=== PATIENT | male | born 1960 | race Caucasian/White ===

== ENCOUNTER 2018-07-23 22:44 | Inpatient (IN) ==
[2018-07-23] MEDS ORDERED: SOLU-MEDROL IV ONE (23:03)
[2018-07-23] MEDS ORDERED: DUONEB (A & A) INH ONE (23:04)
[2018-07-23 23:29] LABS: BASO# 0.04 X1000 (0.0-0.2); BASO% 0.5 % (0.0-0.8); EOS# 0.04 X1000 (0.0-0.7); EOS% 0.5 % (0.0-10.0); HEMATOCRIT 50.6 % (42.0-52.0); HEMOGLOBIN 17.2 g/dL (14.0-18.0); IMM GRAN# 0.03 X1000 (0.0-0.04); IMM GRAN% 0.4 % (0.0-0.5); LYMPH# 2.61 X1000 (1.2-3.4); LYMPH% 30.9 % (20.5-51.1); MCH 32.1 PG (27-31); MCV 94.4 FL (81-99); MONO# 0.71 X1000 (0.11-0.59); MONO% 8.4 % (1.7-9.3); MPV 8.5 FL (7.4-10.4); NEUT# 5.03 X1000 (1.4-6.5); NEUT% 59.3 % (42.2-75.2); PLT 295 X1000 (130-400); RBC 5.36 XMIL (4.7-6.1); RDW 14.4 % (11.5-14.5); WBC 8.46 X1000 (4.8-10.8)
[2018-07-23 23:41] LABS: AGAP 14; ALBUMIN 4.2 g/dL (3.5-5.0); ALKALINE PHOSPHATASE 83 U/L (32-122); BUN 12 mg/dL (8-22); CALCIUM 8.3 mg/dL (8.8-10.2); CHLORIDE 102 mmol/L (98-107); COSMO 288; CREATININE 0.9 mg/dL (0.7-1.2); ESTIMATED GFR > 60; GLUCOSE 116 mg/dL (70-104); GOT 15 U/L (10-34); GPT < 5 U/L (10-44); POTASSIUM 4.3 mmol/L (3.5-5.1); SODIUM 144 mmol/L (136-145); TCO2 28 mmol/L (25-35); TOTAL PROTEIN 7.1 g/dL (6.3-8.3)
[2018-07-24 00:01] LABS: INFLUENZA A NEGATIVE (NEGATIVE); INFLUENZA B NEGATIVE (NEGATIVE)
[2018-07-24] MEDS ORDERED: LEVAQUIN 750 MG/D5W 750 MG/150 ML IVPB IV ONE (01:10)
--- NOTE | 2018-07-24 01:10 | PROVIDER DOCUMENTATION ---
This chart was entered by Sayda Chaidez Scribe, acting as scribe for Boby Benítez MD. HPI-Respiratory General - General Chief Complaint: Shortness of Breath Stated Complaint: sob Time Seen by Provider: 07/23/18 23:02 Source: patient Allergies/Adverse Reactions: Patient Allergies Allergy/AdvReac Type Severity Reaction Status Date / Time No Known Allergies Allergy Verified 01/16/18 15:34 Home Medications: Home Medication List Medication Instructions Recorded Confirmed Last Taken Type Albuterol 2.5MG/Ipratrop 0.5MG 3 ml INH Q4-6H PRN PRN #120 neb 12/23/17 01/08/18 Unknown Rx [Duoneb (A & A)] Albuterol Sulfate Inhaler 2 puff INH Q6H PRN PRN #1 inhaler 12/23/17 01/08/18 Unknown Rx [Ventolin Hfa] Alprazolam [Xanax] 0.25 mg PO QHS #20 tab 12/23/17 01/08/18 Unknown Rx Fluticasone/Salmet 250/50 INH 1 puff INH RTBID #1 inhaler 12/23/17 01/08/18 Unknown Rx [Advair 250/50 Diskus] Gabapentin [Neurontin] 100 mg PO BID #60 cap 12/23/17 01/08/18 Unknown Rx Baclofen [Lioresal] 10 mg PO TID@0900,1500,2100 01/08/18 01/08/18 Unknown History Chlordiazepoxide [Librium] 25 mg PO TID PRN #10 cap 01/11/18 Unknown Rx - History of Present Illness-Resp Nature of Presenting Problem: Pt presents to ED via EMS and has hx of COPD and is a current everyday smoker. Sts that he has had worsened SOB for the last 2 days, does not use O2 at home. in ED was on 2 liters and stating only 88%, turned up and now is improving. Quality of Pain: reports: none, other (SOB) Severity in ED: reports: moderate Onset/Duration: reports: 2 days ago Timing: reports: still present Cough Quality/Degree: reports: no cough Episode Frequency: chronic episodes Current Respiratory Medication Therapy: Initiated albuterol/atrovent inhale (albuterol treatment en route to ED) Associated Symptoms: reports: denies symptoms, short of breath. denies: cough Similar Symptoms Previously?: Yes Recently seen or treated by another doctor?: No Review of Systems - Adult - REVIEW OF SYSTEMS - ADULT Constitutional: reports: no symptoms reported. denies: chills, fever Eyes: reports: no symptoms reported Ears, Nose, Mouth & Throat: reports: no symptoms reported Cardiovascular: denies: chest pain Respiratory: reports: shortness of breath Gastrointestinal: reports: no symptoms reported. denies: abdominal pain, diarrhea, nausea, vomiting Genitourinary: reports: no symptoms reported Musculoskeletal: reports: no symptoms reported Integumentary: reports: no symptoms reported Neurological: denies: dizziness/vertigo, headache/migraines Psychiatric: reports: no symptoms reported Endocrine: reports: no symptoms reported Hematologic/Lymphatic: reports: no symptoms reported Allergic/Immunologic: reports: no symptoms reported Past History - Adult - PAST MEDICAL HISTORY-ADULT Review of Records: reports: Old Records Reviewed, Nursing Assessment Review, Medications Reviewed, Social history reviewed & non-contributory. Major Childhood Illnesses: reports: denies history Cardiovascular: reports: denies history Respiratory: reports: asthma, COPD Gastrointestinal: reports: hepatitis (C) Obstetrical/Gynecological: reports: denies history Genitourinary: reports: denies history Musculoskeletal: reports: chronic pain Neurological: reports: denies history Psychiatric: reports: anxiety, depression, other (alcoholic) Endocrine/Immune: reports: denies history Other Conditions: reports: denies history - PRIOR SURGERIES/PROCEDURES Surgical/Procedure History: reports: orthopedic (extremity) - IMMUNIZATION STATUS Childhood Immunizations: See Nurse Assessment Flu Vaccine: See Nurse Assessment - FAMILY HISTORY Family History: reviewed, not pertinent - SOCIAL HISTORY Smoking: greater than 1 pack/day Provider spent 3-5 mins advising pt. on dangers of tobacco.: Discussed manners to quit use, and f/u contacts for add'l counseling. Substance Use: none/never Alcohol Use Frequency: occasionally Physical Exam-General - PHYSICAL EXAM-ADULT Initial Vital Signs Reviewed: Yes - CONSTITUTIONAL General Appearance: appears well, alert, no apparent distress - EYES Eyes: PERRL/EOMI, pink conjunctivae - HEAD, EARS, NOSE, MOUTH & THROAT HENMT: normocephalic/atraumatic, moist mucous membranes, normal ENT inspection, TMs normal, pharynx normal - NECK Neck: non-tender, full range of motion, supple, normal inspection - RESPIRATORY Respiratory: chest non-tender, other (Course breath sounds) - CARDIOVASCULAR Cardiovascular: normal peripheral pulses, no edema, tachycardia (107) - GASTROINTESTINAL (ABDOMEN) Abdominal Exam: normal bowel sounds, non tender, soft - LYMPHATIC Lymphatic: no adenopathy - MUSCULOSKELETAL Back Exam: normal inspection, no CVA tenderness, no vertebral tenderness Extremity: normal range of motion, non-tender, normal gait, normal inspection - SKIN Integumentary: normal color, warm/dry - NEUROLOGIC Neurologic: grossly normal - PSYCHIATRIC Psych/Mental Status: normal mood/affect, normal thought content, normal thought process, oriented x 3 Progress - PLAN OF CARE/RESULTS Progress/Plan/Lab Results: Vital Signs - 8 hr 07/23/18 22:44 07/23/18 23:40 07/24/18 00:09 Temperature 99.0 F 98.9 F Pulse Rate 107 H 98 H 96 H Respiratory Rate 16 26 H 26 H Blood Pressure 134/92 139/89 O2 Sat by Pulse Oximetry 94 L 98 93 L Laboratory Results - last 24 hr 07/23/18 07/23/18 07/23/18 22:45 22:45 22:45 WBC 8.46 RBC 5.36 Hgb 17.2 Hct 50.6 MCV 94.4 MCH 32.1 H MCHC 34.0 RDW Std Deviation 14.4 Plt Count 295 MPV 8.5 Immature Gran % (Auto) 0.4 Neut % (Auto) 59.3 Lymph % (Auto) 30.9 Rooks % (Auto) 8.4 Eos % (Auto) 0.5 Baso % (Auto) 0.5 Immature Gran # (Auto) 0.03 Neut # (Auto) 5.03 Lymph # (Auto) 2.61 Rooks # (Auto) 0.71 H Eos # (Auto) 0.04 Baso # (Auto) 0.04 Sodium 144 Potassium 4.3 Chloride 102 Carbon Dioxide 28 Anion Gap 14 BUN 12 Creatinine 0.9 Estimated GFR/1.73 m2 > 60 BUN/Creatinine Ratio 13 Glucose 116 H Calculated Osmolality 288 Calcium 8.3 L Total Bilirubin 0.20 AST 15 ALT < 5 L Alkaline Phosphatase 83 Troponin T < 0.010 Wbl-X-Ovdiuarrcva Pept Total Protein 7.1 Albumin 4.2 Globulin 3.0 Albumin/Globulin Ratio 1.0 Influenza A (Rapid) Influenza B (Rapid) 07/23/18 07/23/18 22:45 23:30 WBC RBC Hgb Hct MCV MCH MCHC RDW Std Deviation Plt Count MPV Immature Gran % (Auto) Neut % (Auto) Lymph % (Auto) Rooks % (Auto) Eos % (Auto) Baso % (Auto) Immature Gran # (Auto) Neut # (Auto) Lymph # (Auto) Rooks # (Auto) Eos # (Auto) Baso # (Auto) Sodium Potassium Chloride Carbon Dioxide Anion Gap BUN Creatinine Estimated GFR/1.73 m2 BUN/Creatinine Ratio Glucose Calculated Osmolality Calcium Total Bilirubin AST ALT Alkaline Phosphatase Troponin T Tun-C-Wsuqcrynwlf Pept 124 Total Protein Albumin Globulin Albumin/Globulin Ratio Influenza A (Rapid) NEGATIVE Influenza B (Rapid) NEGATIVE Orders Category Date Time Status cxr [CHEST-1 VIEW] [RAD] Stat Exams 07/23/18 23:03 Taken CBC WITH ELECTRONIC DIFF [HEME] Stat Lab 07/23/18 22:45 Completed COMPREHENSIVE METABOLIC PANEL [CHEM] Stat Lab 07/23/18 22:[address] Stat Lab 07/23/18 23:30 Completed PRO B-NATRIURETIC PEPTIDE Stat Lab 07/23/18 22:45 Completed TROPONIN T Stat Lab 07/23/18 22:45 Completed Albuterol 2.5MG/Ipratrop 0.5MG [Duoneb (A & A)] Med 07/23/18 23:04 Discontinued 3 ml INH NOW ONE Methylprednisolone Sod Succ [Solu-Medrol] Med 07/23/18 23:03 Discontinued 125 mg IV NOW ONE Aerosol Treatments Routine Oth 07/23/18 23:04 Completed Aerosol Treatments Stat Oth 07/23/18 23:04 Completed Result Diagrams: 07/23/18 22:45 07/23/18 22:45 Departure - Departure Date of Disposition Decision: 07/24/18 Time of Disposition Decision: 01:10 DIAGNOSIS: COPD exacerbation Disposition: ADMITTED INPATIENT 09 Certified Medical Emergency: Emergent Condition: Fair - Critical Care Note This patient required my direct & personal management of CC.: No Attestation - Physician/ MANDA Attestation Patient care was provided by Advanced Practice Provider:: No The physician spent face to face time with patient:: Yes Advanced Practice Provider documentation review:: Supervising physician onsite and consulted in the evaluation and care of this patient. The physician did have a face to face encounter with the patient. This chart was documented by the indicated scribe, (Sayda Chaidez, Ashley) and accurately reflects the services I performed and decisions made by me, Boby Benítez MD, as attested by the provider's signature.
[2018-07-24] MEDS ORDERED: ZOFRAN IV PRN (01:12)
[2018-07-24] MEDS ORDERED: TYLENOL PO PRN (01:12)
[2018-07-24] MEDS ORDERED: FLU VACCINE IM ONE (03:01)
[2018-07-24 03:53] LABS: BE 1.1 mmoll (-3.0-3.0); BLOOD TYPE ARTERIAL; HCO3-(ACT) 25.6 mmoll (20.0-26.0); METHB 1.5 % (0.0-1.5); O2(CT) 21.3 mL/dL (15.0-23.0); O2HB 92.3 % (95.0-99.0); PO2(98.6) 86 mmHg (60-100); SAMPLE BLOOD; SAO2 97.7 % (95.0-100.0); THB 16.4 g/dL (11.5-17.4); pH(98.6) 7.34 (7.35-7.45)
[2018-07-24 03:54] LABS: PCO2(98.6) 52 mmHg (35-45)
[2018-07-24 03:55] LABS: ALLEN TEST YES; MODALITY CANNULA
[2018-07-24 07:04] LABS: BASO# 0.01 X1000 (0.0-0.2); BASO% 0.2 % (0.0-0.8); HEMATOCRIT 45.9 % (42.0-52.0); HEMOGLOBIN 15.4 g/dL (14.0-18.0); IMM GRAN# 0.02 X1000 (0.0-0.04); IMM GRAN% 0.4 % (0.0-0.5); LYMPH# 0.76 X1000 (1.2-3.4); LYMPH% 13.5 % (20.5-51.1); MCH 31.2 PG (27-31); MCHC 33.6 g/dL (33-37); MCV 93.1 FL (81-99); MONO# 0.04 X1000 (0.11-0.59); MONO% 0.7 % (1.7-9.3); MPV 8.6 FL (7.4-10.4); NEUT# 4.79 X1000 (1.4-6.5); NEUT% 85.2 % (42.2-75.2); PLT 248 X1000 (130-400); RBC 4.93 XMIL (4.7-6.1); RDW 13.9 % (11.5-14.5); WBC 5.62 X1000 (4.8-10.8)
[2018-07-24 07:25] LABS: AGAP 16; BUN 16 mg/dL (8-22); CALCIUM 8.1 mg/dL (8.8-10.2); CHLORIDE 100 mmol/L (98-107); COSMO 284; CREATININE 0.7 mg/dL (0.7-1.2); ESTIMATED GFR > 60; GLUCOSE 128 mg/dL (70-104); POTASSIUM 3.8 mmol/L (3.5-5.1); SODIUM 141 mmol/L (136-145); TCO2 26 mmol/L (25-35)
--- NOTE | 2018-07-24 07:53 | Diag Imaging Result Doc PS360 ---
EXAM: CHEST-1 VIEW - 07/23/2018 HISTORY: sob TECHNIQUE: One view chest COMPARISON: 12/20/2017 FINDINGS: Heart size is normal. There are possible COPD changes with mildly hyperexpanded lungs. The lungs appear to be clear of acute changes. There is no pleural effusion or pneumothorax identified. IMPRESSION: Possible COPD changes with mildly hyperexpanded lungs. No other evidence of acute disease. Electronically signed by Dusty Tafoya 07/24/2018 7:50 AM
[2018-07-24] MEDS: NICODERM PATCH TD SCH (08:07)
[2018-07-24] MEDS ORDERED: SOLU-MEDROL IV SCH (08:15)
[2018-07-24] MEDS: MORPHINE IV PRN ×3 (08:27→20:31)
[2018-07-24] MEDS ORDERED: NICODERM PATCH TD SCH (09:00)
[2018-07-24] MEDS: ROCEPHIN 1 GM in NS 50 ML IV SCH (10:04)
[2018-07-24] MEDS: LIBRIUM PO SCH ×3 (10:26→23:11)
[2018-07-24] MEDS: ZITHROMAX 500 MG/NS 500 MG/250 ML IVPB IV SCH (10:27)
[2018-07-24] MEDS: DUONEB (A & A) INH SCH ×4 (11:53→23:33)
--- NOTE | 2018-07-24 11:54 | HISTORY AND PHYSICAL ---
PRIMARY CARE PHYSICIAN: None. CHIEF COMPLAINT: Shortness of breath that has worsened over the past 2 days. HISTORY OF PRESENTING ILLNESS: This is a 57-year-old male who presents to [facility] ER with complaints of shortness of breath that have progressively worsened over the last 2 days. States that he had been buying Xanax from a neighbor for quite a while and the neighbor moved to another location and he was no longer able to buy the Xanax. He then relapsed from his alcoholism and over the last 3 days has been drinking approximately a pint of liquor daily in order to combat his worsening anxiety from most likely a benzodiazepine withdrawal. When he arrived to the emergency room, he had an O2 saturation of 94% on room air. His chest x-ray showed possible COPD changes with mildly hyperexpanded lungs, but no other evidence of acute disease. He was noted in the emergency room to have coarse breath sounds, this morning is a little decreased. He was tachycardic at 107 on arrival and is currently at 102, so he has been admitted for further evaluation and treatment. He also does state that he has had some increased depression since his relapse, but no suicidal ideations or any type of plan at this time. PAST MEDICAL HISTORY: COPD, hepatitis C, chronic pain, depression and anxiety. PAST SURGICAL HISTORY: A knee arthroscopy but the patient is unable to recall which knee it was. FAMILY HISTORY: Reviewed and noncontributory. SOCIAL HISTORY: Currently lives with his ex . Smokes a pack of cigarettes a day and has done so for 40 years. Over the last 3 days, he states he has been drinking a pint of alcohol daily. He had been sober for approximately a year prior to this, and uses marijuana occasionally. ALLERGIES: He has no known drug allergies. HOME MEDICATIONS: He does not take any medications prescribed to him on a routine basis, but again, he has been buying Xanax off the street. LABORATORY DATA: He had a white blood cell count of 8.46, hemoglobin 17.2, hematocrit 50.6, platelets 295,000. ABG showed a pH of 7.34, pCO2 of 52, PO2 86, bicarb 25.6. This is on 3 L via nasal cannula. Sodium was 144, potassium 4.3, chloride 102, CO2 28, BUN of 12, creatinine 0.9, glucose 116. His proBNP was 124. Influenza A and B were both negative. REVIEW OF SYSTEMS: He denied any fever, chills, blurred vision, dizziness, or chest pain. He has had shortness of breath, nonproductive cough. Denies any abdominal pain, constipation, diarrhea, burning or hurting with urination. He does report increased anxiety as well. PHYSICAL EXAMINATION: VITAL SIGNS: On arrival, he had a temperature of 99 degrees, a pulse of 107, respirations 16, blood pressure 134/92. GENERAL: This is a 57-year-old male who is sitting up in the bed and answers questions appropriately. HEENT: Normocephalic, atraumatic. Normal ENT inspection. Oropharynx and nares are clear. EYES: Pupils are equal, round, reactive to light and accommodation. Extraocular movements are intact. NECK: Normal inspection. Normal range of motion. LUNGS: With decreased breath sounds bilaterally. Equal lung expansion. Chest wall movement noted. HEART: With regular rate and rhythm. No murmurs, rubs, or gallops. ABDOMEN: Soft, nontender, nondistended. Bowel sounds are present x4 quadrants. MUSCULOSKELETAL: He has 5/5 strength x4 extremities. NEUROLOGICAL: The cranial nerves 2-12 appear grossly intact. ASSESSMENT: 1. An acute chronic obstructive pulmonary disease exacerbation. 2. Ethanol abuse. 3. Tobacco abuse. 4. Depression and anxiety without suicidal ideations. PLAN: He has been admitted to the medical unit, placed on O2 per protocol, telemetry. Healthy heart diet. DuoNeb q.4 hours, Solu-Medrol 80 mg IV q.8 and will wean as he improves, Rocephin 1 gram IV q.24, azithromycin 500 IV q.24, Librium high dose taper and Ativan 1 mg IV q.4 hours p.r.n. for alcohol withdrawal. We will recheck a CBC, BMP in the a.m. Further orders after being seen by attending. Dictated by RENÉ Pino for Dieter Osborne MD cc: RENÉ Pino MD
--- NOTE | 2018-07-24 12:36 | HISTORY AND PHYSICAL ---
ADDENDUM: Mr. Gil got admitted yesterday because of shortness of breath. Upon presentation, he was found to be remarkably hypoxemic with an O2 saturation of 94, and ABG showed a pCO2 of 52. The patient was subsequently admitted. This morning, he refers to be doing a little better. Still has some shortness of breath. O2 saturation is up to 96 on 3 L. I reviewed all his labs. Remarkably, his ABG showed pH of 7.34, pCO2 of 52. A chest x-ray which was done yesterday also showed possible COPD changes with mildly hyperexpanded lungs. ASSESSMENT: 1. Acute hypoxemic respiratory failure. 2. Acute on chronic hypercarbic respiratory failure. 3. Chronic obstructive pulmonary disease exacerbation. 4. Severe alcohol abuse. 5. Active tobacco use. 6. Chronic prescription drug abuse. PLAN: We are going to continue with the IV antibiotics, put the patient on alcohol withdrawal protocol, steroids and nebulization, and re-evaluate him in the morning. Agree with H P that has been dictated by the nurse practitioner, and the plan reflects my opinion. Discussed with her. cc: Dieter Osborne MD
[2018-07-24] MEDS: ATIVAN IV PRN ×2 (12:44→20:30)
[2018-07-24] MEDS: SOLU-MEDROL IV SCH (17:09)
[2018-07-24] MEDS ORDERED: AMBIEN PO PRN (21:13)
[2018-07-25] MEDS: DUONEB (A & A) INH SCH ×3 (03:31→11:40)
[2018-07-25] MEDS: LIBRIUM PO SCH ×2 (04:07→11:04)
[2018-07-25] MEDS: SOLU-MEDROL IV SCH ×2 (04:07→10:54)
[2018-07-25] MEDS: ATIVAN IV PRN ×2 (04:08→08:06)
[2018-07-25] MEDS: MORPHINE IV PRN ×3 (04:08→11:04)
[2018-07-25 06:05] LABS: HEMATOCRIT 43.1 % (42.0-52.0); HEMOGLOBIN 14.7 g/dL (14.0-18.0); IMM GRAN# 0.02 X1000 (0.0-0.04); IMM GRAN% 0.2 % (0.0-0.5); LYMPH# 0.68 X1000 (1.2-3.4); LYMPH% 7.8 % (20.5-51.1); MCH 31.9 PG (27-31); MCHC 34.1 g/dL (33-37); MCV 93.5 FL (81-99); MONO# 0.78 X1000 (0.11-0.59); MONO% 8.9 % (1.7-9.3); MPV 8.6 FL (7.4-10.4); NEUT# 7.25 X1000 (1.4-6.5); NEUT% 83.1 % (42.2-75.2); PLT 202 X1000 (130-400); RBC 4.61 XMIL (4.7-6.1); RDW 13.9 % (11.5-14.5); WBC 8.73 X1000 (4.8-10.8)
[2018-07-25 06:20] LABS: AGAP 8; BUN 22 mg/dL (8-22); CALCIUM 8.4 mg/dL (8.8-10.2); CHLORIDE 96 mmol/L (98-107); COSMO 276; CREATININE 0.7 mg/dL (0.7-1.2); ESTIMATED GFR > 60; GLUCOSE 143 mg/dL (70-104); POTASSIUM 4.6 mmol/L (3.5-5.1); SODIUM 135 mmol/L (136-145); TCO2 31 mmol/L (25-35)
[2018-07-25 07:34] VITALS: BP 143/80
[2018-07-25] MEDS: ROCEPHIN 1 GM in NS 50 ML IV SCH ×2 (07:49→10:54)
[2018-07-25] MEDS: NICODERM PATCH TD SCH ×2 (07:51→10:52)
[2018-07-25] MEDS: ZITHROMAX 500 MG/NS 500 MG/250 ML IVPB IV SCH ×2 (08:06→10:53)
--- NOTE | 2018-07-25 12:08 | DISCHARGE SUMMARY ---
ADMISSION DATE: 07/24/2018 DISCHARGE DATE: 07/25/2018 DISPOSITION: Home. FOLLOWUP: With patient's PCP. CONSULTATION DURING THIS ADMISSION: None. INVASIVE PROCEDURES DONE DURING THIS ADMISSION: None. IMAGING STUDIES OF SIGNIFICANCE: A chest x-ray shows COPD changes with mildly hyperexpanded lungs. ADMISSION DIAGNOSES: 1. Chronic obstructive pulmonary disease exacerbation. 2. Ethanol abuse. 3. Tobacco abuse. 4. Depression and anxiety without suicidal or homicidal thoughts. DIAGNOSES AT THE TIME OF DISCHARGE: 1. Acute hypoxemic respiratory failure, improved. 2. Acute on chronic hypercarbic respiratory failure. 3. Chronic obstructive pulmonary disease exacerbation. 4. Severe alcohol abuse. 5. Tobacco abuse. 6. Chronic prescription drug abuse. 7. Clinical volume depletion, improved. DISCHARGE MEDICATIONS: 1. Prednisone 20 mg daily. 2. Klonopin 0.5 p.o. daily. 3. Gabapentin 100 mg b.i.d. 4. Spiriva 1 puff b.i.d. 5. Azithromycin 250 p.o. daily. 6. Augmentin 875 p.o. b.i.d. 7. Ventolin inhaler 2 puffs q.6 p.r.n. for wheezing. PRESENTING COMPLAINT: Shortness of breath. HISTORY OF PRESENTING COMPLAINT: Mr. Gil is a 57-year-old, male who presented to the emergency department because of a 2-day history of shortness of breath which has been progressively getting worse. The patient also refers that he normally gets Xanax from a next-door neighbor but the supply had been discontinued and he appears to have relapsed using a lot of alcohol. He came to the emergency department also showing some signs of alcohol abuse. The patient was subsequently admitted for further medical care. HOSPITAL COURSE: Mr. Gil was admitted to the medical floor, adequately hydrated. Was started on COPD exacerbation protocol and alcohol withdrawal protocol. Mr. Gil improved substantially during the hospital course. His main concern, however, was how he would be able to get his prescription for his anxiety medication so he does not go into major withdrawal. Today, he feels a lot better. Wheezing and shortness of breath have significantly improved. Mr. Gil is therefore clinically stable for discharge. CURRENT VITAL SIGNS: Blood pressure is 143/80, pulse is 72, respirations are 21, temperature is 98.1 degrees. PHYSICAL EXAMINATION: Physical examination is unremarkable. Specifically, on the chest, there is no wheezing anymore. No crepitations. Cardiovascular: Regular rate and rhythm. HUMAN RESOURCES HR REPRESENTATIVE: The patient is awake, alert, and oriented. Mr. Gil is clinically stable. LABORATORY DATA: His lab work has also been reviewed. CBC is completely unremarkable. Chemistry also is stable with sodium of 135. Rest of chemistry is normal. PLAN: Mr. Gil is being discharged today in stable condition. He has been advised substantially to follow up with the primary care doctor and also to avoid using prescription drugs, especially when it is not prescribed for him. All the discharge instructions have been discussed with him and he voiced understanding. Time spent for discharge was 35 minutes. cc: Dieter Osborne MD
== END 2018-07-25 12:40 | disposition home or self-care (01) | DRG 190 ==
LOC: P.ED 22:44 → SUATTDRO 07-24 01:41 → P.MEDSURG 07-24 01:41
PROVIDERS: ATTEND Internal Medicine
CPT/HCPCS: 71010; 71045; 80048; 80053; 82805; 83880; 84484; 85025; 87275; 87276; 87804; 90686; 94640; 94761; 96374; 96375; 99285; A9270; J0456; J0696; J1956; J2060; J2270; J2405; J2920; J2930

== ENCOUNTER 2018-08-07 07:14 | Inpatient (IN) ==
[2018-08-07] MEDS ORDERED: ASPIRIN PO ONE (07:21)
[2018-08-07] MEDS ORDERED: XANAX MISC ONE (07:26)
[2018-08-07] MEDS ORDERED: MAGNESIUM SULFATE 2 GM/S.W.I. 2 GM/50 ML IVPB IV ONE (07:27)
[2018-08-07] MEDS ORDERED: SOLU-MEDROL IV ONE ×2 (07:27→11:15)
[2018-08-07] MEDS ORDERED: NS 250 ML IV ONE (07:46)
[2018-08-07] MEDS ORDERED: NS 250 ML ONE (07:46)
[2018-08-07 07:55] LABS: BLOOD TYPE ARTERIAL; SAMPLE BLOOD
[2018-08-07 07:57] LABS: BASO# 0.02 X1000 (0.0-0.2); BASO% 0.2 % (0.0-0.8); EOS# 0.21 X1000 (0.0-0.7); EOS% 2.1 % (0.0-10.0); HEMATOCRIT 45.2 % (42.0-52.0); HEMOGLOBIN 15.8 g/dL (14.0-18.0); IMM GRAN# 0.03 X1000 (0.0-0.04); IMM GRAN% 0.3 % (0.0-0.5); LYMPH# 3.55 X1000 (1.2-3.4); LYMPH% 34.8 % (20.5-51.1); MCH 32.4 PG (27-31); MCV 92.6 FL (81-99); MONO# 0.79 X1000 (0.11-0.59); MONO% 7.8 % (1.7-9.3); MPV 9.2 FL (7.4-10.4); NEUT# 5.59 X1000 (1.4-6.5); NEUT% 54.8 % (42.2-75.2); PLT 153 X1000 (130-400); RBC 4.88 XMIL (4.7-6.1); RDW 14.1 % (11.5-14.5); WBC 10.19 X1000 (4.8-10.8)
[2018-08-07 07:58] LABS: THB 15.3 g/dL (11.5-17.4)
[2018-08-07 07:59] LABS: MODALITY CANNULA
[2018-08-07 08:00] LABS: ALLEN TEST YES
[2018-08-07 08:02] LABS: PCO2(98.6) 55 mmHg (35-45)
[2018-08-07 08:12] LABS: INR 0.83; PROTIME 11.8 Seconds (11.0-16.0); PTT 26.3 Seconds (22.3-41.8)
[2018-08-07 08:13] LABS: AGAP 12; ALBUMIN 3.9 g/dL (3.5-5.0); ALKALINE PHOSPHATASE 115 U/L (32-122); BUN 18 mg/dL (8-22); CHLORIDE 93 mmol/L (98-107); CK PROFILE 160 U/L (24-204); COSMO 279; CREATININE 0.7 mg/dL (0.7-1.2); ESTIMATED GFR > 60; GLUCOSE 96 mg/dL (70-104); GOT 24 U/L (10-34); GPT < 5 U/L (10-44); POTASSIUM 3.7 mmol/L (3.5-5.1); SODIUM 139 mmol/L (136-145); TCO2 34 mmol/L (25-35); TOTAL PROTEIN 6.7 g/dL (6.3-8.3)
[2018-08-07] MEDS ORDERED: ZOFRAN ONE (08:36)
[2018-08-07] MEDS ORDERED: LASIX IV ONE (08:38)
--- NOTE | 2018-08-07 08:38 | Diag Imaging Result Doc PS360 ---
EXAM: CHEST-2 VIEWS 08/07/2018 HISTORY: cough TECHNIQUE: PA and lateral chest COMMENT: There is no evidence of acute cardiac or pulmonary disease. There is apparent COPD. Compared to 07/23/2018 there has been no significant change. IMPRESSION: COPD. Electronically signed by Lan Felix 08/07/2018 8:36 AM
[2018-08-07] MEDS ORDERED: ZOFRAN IV ONE (08:41)
[2018-08-07] MEDS ORDERED: LOVENOX 1 MG/KG SUBQ ONE (08:55)
--- NOTE | 2018-08-07 08:59 | PROVIDER DOCUMENTATION ---
HPI-Respiratory General - General Chief Complaint: Shortness of Breath Stated Complaint: dyspnea Time Seen by Provider: 08/07/18 07:19 Source: patient, RN notes reviewed, EMS notes reviewed Allergies/Adverse Reactions: Patient Allergies Allergy/AdvReac Type Severity Reaction Status Date / Time No Known Allergies Allergy Verified 08/07/18 07:19 Home Medications: Home Medication List Medication Instructions Recorded Confirmed Last Taken Type Albuterol Sulfate Inhaler 2 puff INH Q6H PRN PRN #1 inhaler 07/25/18 Unknown Rx [Ventolin Hfa] Clonazepam [Klonopin] 0.5 mg PO DAILY #10 tab.rapdis 07/25/18 Unknown Rx Gabapentin [Neurontin] 100 mg PO BID #30 cap 07/25/18 Unknown Rx Tiotropium [place] [Spiriva 4 gm INHALATION BID #1 mist.inhal 07/25/18 Unknown Rx Respimat] - History of Present Illness-Resp Nature of Presenting Problem: ACUTE RESPIRATORY DIFFICULTY FOR THE PAT 1 WEEK ONLY RECENTLY HAD HIS MEDICATIONS REFILLED . STILL SMOKE 1/2-1 PPD SUDDEN INCREASE SOB THIS AM -- BROUGHT IN BY EMS Quality of Pain: reports: fullness Onset/Duration: reports: 1 week ago Timing: reports: still present, getting worse Context: reports: out of meds (ONLY RECENTLY FILLED). denies: recent foreign travel Exposure: reports: allergen exposure, smoke exposure Cough Quality/Degree: reports: moderate, dry cough Episode Frequency: frequent episodes Current Respiratory Medication Therapy: Initiated see nurses note Modifying Factors: improves with: exertion, coughing Associated Symptoms: reports: cough, heart racing, shortness of breath, sinus pain, short of breath Similar Symptoms Previously?: Yes Recently seen or treated by another doctor?: No Review of Systems - Adult - REVIEW OF SYSTEMS - ADULT Constitutional: reports: fatique, weight loss Eyes: reports: no symptoms reported Ears, Nose, Mouth & Throat: reports: sinus problem, nose pain Cardiovascular: reports: no symptoms reported Respiratory: reports: chronic cough, cough, dyspnea on exertion, shortness of breath, wheezing Gastrointestinal: reports: no symptoms reported Genitourinary: reports: no symptoms reported Musculoskeletal: reports: muscle aches, muscle weakness Integumentary: reports: no symptoms reported Neurological: reports: no symptoms reported Psychiatric: reports: anxiety Hematologic/Lymphatic: reports: no symptoms reported Allergic/Immunologic: reports: no symptoms reported All Other Systems: Reviewed and Negative Past History - Adult - PAST MEDICAL HISTORY-ADULT Review of Records: reports: Old Records Reviewed, Nursing Assessment Review Major Childhood Illnesses: reports: denies history Cardiovascular: reports: denies history Respiratory: reports: asthma, COPD Gastrointestinal: reports: hepatitis (C) Obstetrical/Gynecological: reports: denies history Genitourinary: reports: denies history Musculoskeletal: reports: chronic pain Neurological: reports: denies history Psychiatric: reports: anxiety, depression, other (alcoholic) Endocrine/Immune: reports: denies history Other Conditions: reports: denies history - PRIOR SURGERIES/PROCEDURES Surgical/Procedure History: reports: orthopedic (extremity) - IMMUNIZATION STATUS Childhood Immunizations: See Nurse Assessment Flu Vaccine: See Nurse Assessment - FAMILY HISTORY Family History: reviewed, not pertinent Physical Exam-General - PHYSICAL EXAM-ADULT Exam Limited by: NONE Initial Vital Signs Reviewed: Yes (HYPOXEMIA) - CONSTITUTIONAL General Appearance: alert, moderate distress, thin - EYES Eyes: PERRL/EOMI - HEAD, EARS, NOSE, MOUTH & THROAT HENMT: normocephalic/atraumatic, normal ENT inspection, TMs normal, pharynx normal, dental decay, maxillary tenderness - NECK Neck: non-tender, other (MILD : DJD WITH DECREASED ROM) - RESPIRATORY Respiratory: chest non-tender, respiratory distress (MODERATE), decreased breath sounds (MILD-MODERATE), crackles (BASES), wheezing (SCATTERED END EXPIRATORY), increased rate - CARDIOVASCULAR Cardiovascular: normal peripheral pulses, no edema, no gallop, tachycardia - GASTROINTESTINAL (ABDOMEN) Abdominal Exam: normal bowel sounds, non tender, soft, no organomegaly, no pulsatile mass - LYMPHATIC Lymphatic: no adenopathy - MUSCULOSKELETAL Back Exam: normal inspection, no CVA tenderness, no vertebral tenderness, decreased range of motion (MILD-MODERATE DJD) Extremity: normal range of motion, non-tender, normal inspection, no pedal edema , no calf tenderness, pelvis stable - SKIN Integumentary: normal color, normal turgor - NEUROLOGIC Neurologic: housing management representative II-XII nml as tested, grossly normal, no motor/sensory deficits - PSYCHIATRIC Psych/Mental Status: normal mood/affect, normal thought content, normal thought process - HEART Score HEART Score: History: Moderately Suspicious HEART Score: ECG: Non-Specific Repolarization Disturbance/LBBB/PM HEART Score: Age: 45-65 Years HEART Score: Risk Factors for Atherosclerotic Disease: 1 or 2 Risk Factors HEART Score: Troponin: < or = Normal Limit Total HEART Score:: 4 Progress - PLAN OF CARE/RESULTS Progress/Plan/Lab Results: Vital Signs - 8 hr 08/07/18 07:14 08/07/18 08:50 08/07/18 10:25 Temperature 98.8 F Pulse Rate 120 H 86 86 Respiratory Rate 24 16 11 L Blood Pressure 119/92 122/79 122/88 O2 Sat by Pulse Oximetry 95 89 L 98 Laboratory Results - last 24 hr 08/07/18 08/07/18 08/07/18 07:20 07:20 07:20 WBC 10.19 RBC 4.88 Hgb 15.8 Hct 45.2 MCV 92.6 MCH 32.4 H MCHC 35.0 RDW Std Deviation 14.1 Plt Count 153 MPV 9.2 Immature Gran % (Auto) 0.3 Neut % (Auto) 54.8 Lymph % (Auto) 34.8 [place] % (Auto) 7.8 Eos % (Auto) 2.1 Baso % (Auto) 0.2 Immature Gran # (Auto) 0.03 Neut # (Auto) 5.59 Lymph # (Auto) 3.55 H [place] # (Auto) 0.79 H Eos # (Auto) 0.21 Baso # (Auto) 0.02 PT INR PTT (Actin FS) Specimen Type Sample Site pH pCO2 pO2 HCO3 Base Excess Oxyhemoglobin ABG O2 Sat (Calculated) ABG O2 Saturation ABG Carboxyhemoglobin ABG Methemoglobin Randall Test A-a O2 Difference Total Hemoglobin Lactate Liter Flow Blood Gas Modality FiO2 % Sodium 139 Potassium 3.7 Chloride 93 L Carbon Dioxide 34 Anion Gap 12 BUN 18 Creatinine 0.7 Estimated GFR/1.73 m2 > 60 BUN/Creatinine Ratio 26 Glucose 96 Calculated Osmolality 279 Calcium 8.0 L Total Bilirubin 0.80 AST 24 ALT < 5 L Alkaline Phosphatase 115 Creatine Kinase 160 Troponin T Rxb-V-Myoainakrdl Pept 3679 H Total Protein 6.7 Albumin 3.9 Globulin 3.0 Albumin/Globulin Ratio 1.0 08/07/18 08/07/18 08/07/18 07:20 07:20 07:44 WBC RBC Hgb Hct MCV MCH MCHC RDW Std Deviation Plt Count MPV Immature Gran % (Auto) Neut % (Auto) Lymph % (Auto) [place] % (Auto) Eos % (Auto) Baso % (Auto) Immature Gran # (Auto) Neut # (Auto) Lymph # (Auto) [place] # (Auto) Eos # (Auto) Baso # (Auto) PT 11.8 INR 0.83 PTT (Actin FS) 26.3 Specimen Type ARTERIAL Sample Site L RADIAL pH 7.42 pCO2 55 H* pO2 66 HCO3 30.7 H Base Excess 8.0 H Oxyhemoglobin 83.7 L* ABG O2 Sat (Calculated) 18.0 ABG O2 Saturation 96.2 ABG Carboxyhemoglobin 11.90 H* ABG Methemoglobin 1.0 Randall Test YES A-a O2 Difference 67.0 Total Hemoglobin 15.3 Lactate 2.00 Liter Flow 2.0 Blood Gas Modality CANNULA FiO2 % 28.0 Sodium Potassium Chloride Carbon Dioxide Anion Gap BUN Creatinine Estimated GFR/1.73 m2 BUN/Creatinine Ratio Glucose Calculated Osmolality Calcium Total Bilirubin AST ALT Alkaline Phosphatase Creatine Kinase Troponin T 0.066 Qsj-L-Xsaoziqmguq Pept Total Protein Albumin Globulin Albumin/Globulin Ratio 08/07/18 08/07/18 08:40 09:30 WBC RBC Hgb Hct MCV MCH MCHC RDW Std Deviation Plt Count MPV Immature Gran % (Auto) Neut % (Auto) Lymph % (Auto) [place] % (Auto) Eos % (Auto) Baso % (Auto) Immature Gran # (Auto) Neut # (Auto) Lymph # (Auto) [place] # (Auto) Eos # (Auto) Baso # (Auto) PT INR PTT (Actin FS) Specimen Type ARTERIAL Sample Site L RADIAL pH 7.38 pCO2 71 H* pO2 63 HCO3 34.4 H Base Excess 12.7 H Oxyhemoglobin 84.1 L* ABG O2 Sat (Calculated) 19.5 ABG O2 Saturation 95.0 ABG Carboxyhemoglobin 10.70 H* ABG Methemoglobin 0.8 Randall Test A-a O2 Difference 105.0 Total Hemoglobin 16.5 Lactate 1.00 Liter Flow 12.0 Blood Gas Modality FiO2 % 36.0 Sodium Potassium Chloride Carbon Dioxide Anion Gap BUN Creatinine Estimated GFR/1.73 m2 BUN/Creatinine Ratio Glucose Calculated Osmolality Calcium Total Bilirubin AST ALT Alkaline Phosphatase Creatine Kinase Troponin T 0.059 Pkk-[id number]-Elxntdlhgvb Pept Total Protein Albumin Globulin Albumin/Globulin Ratio Orders Category Date Time Status Cardiac Monitoring DIRECTED Care 08/07/18 07:22 Active Oxygen Therapy- ED Nursing DIRECTED Care 08/07/18 07:22 Active Saline Loc NOW Care 08/07/18 07:21 Active Saline Loc NOW Care 08/07/18 07:22 Active CHEST-2 VIEWS [RAD] Stat Exams 08/07/18 07:21 Completed ABG [RESP] Routine Lab 08/07/18 07:44 Completed ABG [RESP] Routine Lab 08/07/18 09:30 Results BLOOD CULTURE [BLDCUL] Stat Lab 08/07/18 07:58 Ordered CBC WITH DIFF [HEME] Stat Lab 08/07/18 07:20 Completed CK PROFILE [SP CHEM] Stat Lab 08/07/18 07:20 Completed COMPREHENSIVE METABOLIC PANEL [CHEM] Stat Lab 08/07/18 07:20 Completed PRO B-NATRIURETIC PEPTIDE Stat Lab 08/07/18 07:20 Completed PROTIME WITH INR [COAG] Stat Lab 08/07/18 07:20 Completed PTT [COAG] Stat Lab 08/07/18 07:20 Completed TROPONIN T Stat Lab 08/07/18 07:20 Completed TROPONIN T Stat Lab 08/07/18 08:40 Completed 0.9% Sodium Chloride Inj [Ns] 250 ml Med 08/07/18 07:46 Discontinued .ROUTE As directed 0.9% Sodium Chloride Inj [Ns] 250 ml Med 08/07/18 07:46 Discontinued IV KVO mls/hr Alprazolam [Xanax] Med 08/07/18 07:26 Discontinued 0.5 mg MISC NOW ONE Aspirin Med 08/07/18 07:21 Discontinued 325 mg PO NOW ONE Enoxaparin 1 mg/kg [Lovenox 1 mg/kg] Med 08/07/18 08:55 Discontinued 1 each SUBQ NOW ONE Enoxaparin [Lovenox] Med 08/07/18 09:45 Discontinued 70 mg SUBQ NOW ONE Furosemide [Lasix] Med 08/07/18 08:38 Discontinued 40 mg IV NOW ONE Magnesium Sulfate 2 gm/S.w.i. [Magnesium Sulfate 2 gm/S Med 08/07/18 07:27 Discontinued .w.i] 2 gm in 50 ml IV NOW Methylprednisolone Sod Succ [Solu-Medrol] Med 08/07/18 07:27 Discontinued 125 mg IV NOW ONE Ondansetron [Zofran] Med 08/07/18 08:36 Discontinued 4 mg .ROUTE .STK-MED ONE Ondansetron [Zofran] Med 08/07/18 08:41 Discontinued 4 mg IV NOW ONE BIPAP Stat Oth 08/07/18 09:11 Active CP/SOB/Palp >45 yrs of Age Stat Oth 08/07/18 07:21 Ordered Oxygen Device Stat Oth 08/07/18 08:53 Active Pulse Oximetry Stat Oth 08/07/18 07:21 Active EKG [EKG] Stat Ther 08/07/18 07:22 Ordered EKG [EKG] Stat Ther 08/07/18 09:21 Ordered Result Diagrams: 08/07/18 07:20 08/07/18 07:20 - REASSESSMENT Reassessment #1 Status: worsening (CHANGED TO VENTI MASK 40% TROPI 1ST HIGH NORMAL POS: ELEVATED BNP SUSPECT CARDIAC COMPONENT) Reassessment #2 Status: improving (IMPROVING O2 SAT'S) - CONSULTS/PCP/HOSPITALIST Notification #1 *Consult/PCP/Hospitalist*: DR. SEGURA Time Discussed: 11:00 Departure - Departure Date of Disposition Decision: 08/07/18 Time of Disposition Decision: 10:55 DIAGNOSIS: Acute respiratory distress syndrome, COPD exacerbation, Hypoxemia, CHF (congestive heart failure), Hypercapnia Disposition: ADMITTED INPATIENT 09 Certified Medical Emergency: Emergent Condition: Stable Referrals and Follow-Ups: None,PCP [Primary Care Provider] - - Critical Care Note This patient required my direct & personal management of CC.: Yes Total Time (mins): 60 (RESPIRATORY STABLIZATION/EVALUATION) Critical Care Statement: This patient required my direct personal management to treat or rule out processes, the absence of which, could potentiallly result in sudden, clinically significant life or limb threatening deterioration. Attestation - Physician/ MANDA Attestation Patient care was provided by Advanced Practice Provider:: No The physician spent face to face time with patient:: Yes Advanced Practice Provider documentation review:: Supervising physician onsite and consulted in the evaluation and care of this patient. The physician did have a face to face encounter with the patient.
[2018-08-07] MEDS ORDERED: LOVENOX SUBQ ONE (09:45)
[2018-08-07 09:50] LABS: BE 12.7 mmoll (-3.0-3.0); BLOOD TYPE ARTERIAL; HCO3-(ACT) 34.4 mmoll (20.0-26.0); METHB 0.8 % (0.0-1.5); O2(CT) 19.5 mL/dL (15.0-23.0); O2HB 84.1 % (95.0-99.0); PO2(98.6) 63 mmHg (60-100); SAMPLE BLOOD; THB 16.5 g/dL (11.5-17.4); pH(98.6) 7.38 (7.35-7.45)
[2018-08-07 09:59] LABS: PCO2(98.6) 71 mmHg (35-45)
[2018-08-07] MEDS: DUONEB (A & A) INH SCH ×4 (12:30→23:45)
[2018-08-07] MEDS: SOLU-MEDROL IV SCH ×2 (16:10→23:55)
[2018-08-07] MEDS ORDERED: NS 1,000 ML IV ONE (17:49)
[2018-08-07] MEDS ORDERED: ZOFRAN IV PRN (17:49)
[2018-08-07] MEDS ORDERED: ROCEPHIN 1 GM in NS 50 ML IV SCH (18:45)
[2018-08-07] MEDS ORDERED: DUONEB (A & A) INH PRN (18:46)
[2018-08-07] MEDS ORDERED: SODIUM CHLORIDE 0.9% INJ SCH (19:00)
--- NOTE | 2018-08-07 19:24 | HISTORY AND PHYSICAL ---
CHIEF COMPLAINT: Shortness of breath. HISTORY OF PRESENT ILLNESS: This is a well-known patient to the service over the years. He has fairly significant alcohol abuse, also tobacco abuse and COPD. Today I think most of the issues were related to COPD. He reports shortness of breath and cough. He has been on a lucas. He stopped smoking, but now he is smoking a pack a day. He has had alcohol. Between 3 people, he stated he had half a gallon and a pint, so unclear how much alcohol he has had. He had worsening shortness of breath this morning and he came in for evaluation. He denies any chest pain. Cough is productive of sputum which has been dark. Workup in the ER was concerning for hypercapnic respiratory failure. ProBNP was elevated, but he may have cor pulmonale. He has no lower extremity edema. He was hypercapnic, but his pH was normal. He states he has lost about 40 pounds in the last several months. His last admission was 2 weeks ago for COPD exacerbation at that time. His workup then showed COPD, and he was admitted for treatment. His saturations here, he was 89% on 2 L, 92%. Eventually they attempted to put him on BiPAP. He did not tolerate it. He is tolerating high-flow O2. PAST MEDICAL HISTORY: 1. COPD. I do not think he is on chronic O2. 2. Hepatitis C. 3. Chronic pancreatitis. 4. Depression and anxiety. 5. Alcohol abuse. PAST SURGICAL HISTORY: He has had a TKA. FAMILY HISTORY: Mother had CVA, father had CAD. They both in their 60s. SOCIAL HISTORY: He is a pack-a-day smoker at least for 40 years. His alcohol has been about a pint of alcohol, although it is about where he has been, maybe a little bit more. ALLERGIES: No known drug allergies. MEDICATIONS: He has been on Neurontin, Spiriva and albuterol but he takes those very intermittently. REVIEW OF SYSTEMS: He has the weight loss. No chest pains. No nausea, vomiting, diarrhea. No dysuria. Otherwise negative 10-point review of systems. PHYSICAL EXAMINATION: VITAL SIGNS: Blood pressure 111/68, heart rate of 90, respiratory rate 17, temperature 98.1 degrees, 97% on high flow. GENERAL: A thin male in mild distress. EYES: Pupils are equal, round and reactive to light. Sclerae are anicteric. Extraocular movements were intact. EARS, NOSE, THROAT: He had moist mucous membranes. NECK: Supple. CARDIOVASCULAR: Regular rate and rhythm. No murmurs, gallops or rubs. PULMONARY: Diminished breath sounds throughout. GASTROINTESTINAL: Soft, nontender, nondistended. Bowel sounds are positive. EXTREMITIES: No clubbing or cyanosis. LYMPHATICS: No peripheral edema. NEUROLOGICAL: Exam was nonfocal. LABORATORY DATA: White count 10, hemoglobin and hematocrit 15 and 45, platelets 153,000. PH 7.38, pCO2 is 71, PaO2 is 63. Basic looked okay. ProBNP was elevated at 3679. DIAGNOSTIC DATA: Chest x-ray was clear. His EKG is somewhat troubling, because he had deep T-wave inversions, but apparently that has not been a change, or it could be. He had T-wave inversions that were not apparent on his last EKG that was in 2017 here. I do not have a more recent one, although his telemetry really did not show anything. ASSESSMENT AND PLAN: 1. This is a 57-year-old male with chronic obstructive pulmonary disease exacerbation. We will continue breathing treatments and follow closely. We will initiate antibiotics and monitor. 2. Possible cor pulmonale. We will get an echocardiogram, repeat electrocardiograms, because he has this T-wave inversion that was not apparent previously. He is not complaining of any chest pain, but we will follow. 3. Hypercapnic respiratory failure. He is currently on high-flow oxygen. He has not tolerated bilevel positive airway pressure. We will repeat blood gases in the morning and chest x-ray. 4. Hepatitis C. At this point, we will continue to monitor, but nothing to do emergently associated with that. 5. Alcohol abuse. He is at high risk for withdrawal. I do not want to over-sedate him. I am not going to start anything at this moment, but we will continue to follow closely. cc: Fransisco Crawford MD
[2018-08-07] MEDS: PROTONIX IV SCH (19:50)
[2018-08-07] MEDS: ATIVAN IV PRN (19:51)
[2018-08-07] MEDS ORDERED: MAXIPIME 2 GM in NS 100 ML IV SCH (21:15)
[2018-08-08] MEDS: NICODERM PATCH TD PRN ×2 (00:38→22:21)
[2018-08-08 05:57] LABS: BE 15.6 mmoll (-3.0-3.0); BLOOD TYPE ARTERIAL; HCO3-(ACT) 36.9 mmoll (20.0-26.0); METHB 1.2 % (0.0-1.5); O2(CT) 20.6 mL/dL (15.0-23.0); O2HB 92.8 % (95.0-99.0); PO2(98.6) 70 mmHg (60-100); SAMPLE BLOOD; SAO2 97.7 % (95.0-100.0); THB 15.8 g/dL (11.5-17.4); pH(98.6) 7.48 (7.35-7.45)
[2018-08-08] MEDS ORDERED: LOVENOX SUBQ SCH (06:00)
[2018-08-08 06:02] LABS: ALLEN TEST YES; MODALITY HIGH FLOW NASAL CAN; PCO2(98.6) 57 mmHg (35-45)
--- NOTE | 2018-08-08 07:44 | Diag Imaging Result Doc PS360 ---
EXAM: CHEST-PORTABLE 08/08/2018 HISTORY: dyspnea TECHNIQUE: AP portable at 0625 COMMENT: There is minimal platelike atelectasis in the left base which was not present on 08/07/2018. Otherwise considering differences in technique there has been no significant change. IMPRESSION: Left lower lobe subsegmental atelectasis. Electronically signed by Lan Felix 08/08/2018 7:42 AM
[2018-08-08] MEDS: DUONEB (A & A) INH SCH ×5 (08:05→23:19)
[2018-08-08 08:45] LABS: AGAP 10; ALBUMIN 3.6 g/dL (3.5-5.0); ALKALINE PHOSPHATASE 94 U/L (32-122); BUN 19 mg/dL (8-22); CALCIUM 8.1 mg/dL (8.8-10.2); CHLORIDE 91 mmol/L (98-107); CHOLESTEROL 180 mg/dL (0-200); COSMO 279; CREATININE 0.6 mg/dL (0.7-1.2); DIRECT BILIRUBIN < 0.20 mg/dL (0.00-0.20); ESTIMATED GFR > 60; GLUCOSE 158 mg/dL (70-104); GOT 15 U/L (10-34); GPT < 5 U/L (10-44); HDL 99 mg/dL (35-55); LDL 69 mg/dL; POTASSIUM 4.2 mmol/L (3.5-5.1); SODIUM 137 mmol/L (136-145); TCO2 36 mmol/L (25-35); TOTAL PROTEIN 6.4 g/dL (6.3-8.3); TRIGLYCERIDES 59 mg/dL (39-160); VLDL 12 mg/dL
[2018-08-08 08:50] LABS: HEMATOCRIT 41.1 % (42.0-52.0); HEMOGLOBIN 14.3 g/dL (14.0-18.0); IMM GRAN# 0.01 X1000 (0.0-0.04); IMM GRAN% 0.2 % (0.0-0.5); LYMPH# 0.38 X1000 (1.2-3.4); LYMPH% 6.5 % (20.5-51.1); MCH 32.6 PG (27-31); MCHC 34.8 g/dL (33-37); MCV 93.8 FL (81-99); MONO# 0.12 X1000 (0.11-0.59); MPV 9.6 FL (7.4-10.4); NEUT# 5.36 X1000 (1.4-6.5); NEUT% 91.3 % (42.2-75.2); PLT 124 X1000 (130-400); RBC 4.38 XMIL (4.7-6.1); RDW 13.8 % (11.5-14.5); WBC 5.87 X1000 (4.8-10.8)
[2018-08-08] MEDS: SOLU-MEDROL IV SCH ×2 (09:02→16:30)
[2018-08-08] MEDS: POTASSIUM CHLORIDE 20 MEQ, MAGNESIUM SULFATE 2 GM, THIAMINE 100 MG, FOLIC ACID 1 MG, M.... IV SCH ×6 (09:03)
[2018-08-08] MEDS: ATIVAN IV PRN ×4 (09:07→22:22)
[2018-08-08] MEDS ORDERED: VANCOMYCIN IV PER PHARMACY MISC SCH (10:00)
[2018-08-08] MEDS ORDERED: VANCOMYCIN 2,200 MG in NS 500 ML IV ONE (10:30)
[2018-08-08 13:03] LABS: LYMPHS 12 % (21-51); MONO 1 % (1-9); SEGS 87 % (42-75)
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
[2018-08-08] MEDS: MORPHINE IV PRN ×2 (17:12→22:22)
[2018-08-08] MEDS: LOVENOX SUBQ SCH (18:06)
--- NOTE | 2018-08-08 18:32 | PROGRESS NOTE ---
DATE: 08/08/2018 SUBJECTIVE: Patient has no major complaints. He is on high-flow O2 and he seems to be doing okay. OBJECTIVE: Blood pressure 122/78, heart rate of 88, respiratory rate 18, temperature 98.1. Cardiovascular: Regular rate and rhythm. Pulmonary: Bilateral breath sounds clear to auscultation. Gastrointestinal: Soft, nontender, nondistended. Bowel sounds are positive. Wheezing has improved. LABORATORY DATA: White count is 5, hemoglobin and hematocrit 14 and 41, platelets 124,000. pH 7.48, pCO2 57, PO2 70. Creatinine 0.6. LDL was only 69. Chest x-ray today showed some atelectasis at the bases. PROBLEM LIST: 1. Acute hypercapnic and hypoxic respiratory failure. He is doing better on high-flow O2. He is on breathing treatments. He is on steroids which we have decreased somewhat. 2. COPD exacerbation. Will continue breathing treatments, steroids and follow. 3. Acute coronary syndrome. Possibly he had chest pain which he developed severe. His EKG, he did have deep T-wave inversions, which Dr. Willett feels it is suspicious for LAD ischemia. He feels that the patient needs left heart catheterization and he was placed on diltiazem and anticipate transfer to [facility] for further management for left heart catheterization. 4. Disposition: Pending his clinical status, if he has any further chest pain. We will continue to monitor. 5. Alcohol abuse. He is on p.r.n. Ativan. Reluctant to pursue any significant sedation just because his breathing is tenuous. 6. He reports history of hepatitis C, but his viral loads have been negative. His liver enzymes are normal. I think this is all. He does not have chronic hepatitis C, I think that needs to be documented. He has had 2 viral loads which were analyzed in 2018. Actually, he had a viral load in 2016 which was that was undetected as well as in 2014. His viral load in 2018 in June was undetected, so I do not think he has chronic hepatis C. He has been exposed, though and will thus always have a positive antibody. DISPOSITION: Pending clinical status. We will continue to follow. cc: MD KHOA Mckee
[2018-08-08] MEDS ORDERED: ROCEPHIN 1 GM in NS 50 ML IV SCH (19:00)
[2018-08-08] MEDS: CARDIZEM PO SCH (19:59)
[2018-08-08] MEDS: PROTONIX IV SCH (19:59)
[2018-08-08] MEDS ORDERED: VANCOMYCIN 1,750 MG in NS 250 ML IV SCH (23:00)
[2018-08-09] MEDS: SOLU-MEDROL IV SCH ×2 (01:43→08:40)
[2018-08-09] MEDS: CARDIZEM PO SCH ×2 (02:29→08:40)
[2018-08-09] MEDS: MORPHINE IV PRN ×3 (02:29→10:27)
[2018-08-09] MEDS: ATIVAN IV PRN ×3 (02:29→10:26)
[2018-08-09] MEDS: LOVENOX SUBQ SCH (05:47)
[2018-08-09 06:47] LABS: HEMATOCRIT 39.8 % (42.0-52.0); HEMOGLOBIN 13.4 g/dL (14.0-18.0); IMM GRAN# 0.02 X1000 (0.0-0.04); IMM GRAN% 0.2 % (0.0-0.5); LYMPH# 0.44 X1000 (1.2-3.4); LYMPH% 3.4 % (20.5-51.1); MCH 32.2 PG (27-31); MCHC 33.7 g/dL (33-37); MCV 95.7 FL (81-99); MONO# 0.24 X1000 (0.11-0.59); MONO% 1.9 % (1.7-9.3); MPV 9.5 FL (7.4-10.4); NEUT# 12.16 X1000 (1.4-6.5); NEUT% 94.5 % (42.2-75.2); PLT 124 X1000 (130-400); RBC 4.16 XMIL (4.7-6.1); RDW 14.1 % (11.5-14.5); WBC 12.86 X1000 (4.8-10.8)
[2018-08-09 06:59] LABS: AGAP 7; BUN 21 mg/dL (8-22); CHLORIDE 96 mmol/L (98-107); COSMO 281; CREATININE 0.6 mg/dL (0.7-1.2); ESTIMATED GFR > 60; GLUCOSE 148 mg/dL (70-104); MAGNESIUM 2.1 mg/dL (1.5-2.7); POTASSIUM 4.5 mmol/L (3.5-5.1); SODIUM 138 mmol/L (136-145); TCO2 35 mmol/L (25-35)
[2018-08-09 07:39] LABS: BANDS 1 % (0-1); LYMPHS 4 % (21-51); MONO 2 % (1-9); SEGS 93 % (42-75)
[2018-08-09] MEDS: DUONEB (A & A) INH SCH (07:41)
[2018-08-09] MEDS ORDERED: ASPIRIN PO SCH (09:00)
[2018-08-09] MEDS ORDERED: PLAVIX PO SCH (09:00)
--- NOTE | 2018-08-09 09:37 | EKG Report ---
Test Performed on : 08/07/2018 7:17:17 PM Test Reason : dyspnea Blood Pressure : / mmHG Vent. Rate : 087 BPM Atrial Rate : 087 BPM P-R Int : 164 ms QRS Dur : 090 ms QT Int : 444 ms P-R-T Axes : 085 091 085 degrees QTc Int : 534 ms Normal sinus rhythm. Rightward axis Septal infarct (cited on or before 07-AUG-2018) ST & T wave abnormality, consider anterolateral ischemia Prolonged QT Abnormal ECG When compared with ECG of 07-AUG-2018 10:52, (Unconfirmed) No significant change was found Unconfirmed Result
--- NOTE | 2018-08-09 09:40 | EKG Report ---
Test Performed on : 08/09/2018 07:46:00 AM Test Reason : TRANSVER TO Blood Pressure : / mmHG Vent. Rate : 065 BPM Atrial Rate : 065 BPM P-R Int : 160 ms QRS Dur : 100 ms QT Int : 464 ms P-R-T Axes : 077 074 077 degrees QTc Int : 482 ms Normal sinus rhythm. ST & T wave abnormality, consider anterior ischemia Prolonged QT Abnormal ECG When compared with ECG of 07-AUG-2018 19:17, (Unconfirmed) Nonspecific T wave abnormality has replaced inverted T waves in Lateral leads Unconfirmed Result
--- NOTE | 2018-08-09 10:14 | EKG Report ---
Test Performed on : 08/07/2018 10:52:08 AM Test Reason : #2 Blood Pressure : / mmHG Vent. Rate : 086 BPM Atrial Rate : 086 BPM P-R Int : 152 ms QRS Dur : 106 ms QT Int : 458 ms P-R-T Axes : 084 094 073 degrees QTc Int : 548 ms Normal sinus rhythm. Rightward axis Anterior infarct , age undetermined ST & T wave abnormality, consider lateral ischemia Prolonged QT Abnormal ECG When compared with ECG of 07-AUG-2018 10:05, (Unconfirmed) Anterior infarct is now present Unconfirmed Result
--- NOTE | 2018-08-09 10:14 | EKG Report ---
Test Performed on : 08/07/2018 10:05:52 AM Test Reason : SOB Blood Pressure : / mmHG Vent. Rate : 090 BPM Atrial Rate : 090 BPM P-R Int : 158 ms QRS Dur : 102 ms QT Int : 438 ms P-R-T Axes : 076 098 120 degrees QTc Int : 535 ms Normal sinus rhythm. Rightward axis T wave abnormality, consider anterolateral ischemia Prolonged QT Abnormal ECG When compared with ECG of 07-AUG-2018 07:19, (Unconfirmed) No significant change was found Unconfirmed Result
[2018-08-09 10:27] VITALS: BP 117/65
[2018-08-09] MEDS: POTASSIUM CHLORIDE 20 MEQ, MAGNESIUM SULFATE 2 GM, THIAMINE 100 MG, FOLIC ACID 1 MG, M.... IV SCH ×6 (10:27)
[2018-08-09 13:10] LABS: ALLEN TEST YES; MODALITY CANNULA
[2018-08-09 13:40] LABS: PO2(98.6) 63 mmHg (60-100); pH(98.6) 7.43 (7.35-7.45)
[2018-08-09 13:41] LABS: BE 9.9 mmoll (-3.0-3.0); HCO3-(ACT) 32.2 mmoll (20.0-26.0)
[2018-08-09 13:42] LABS: SAO2 95.3 % (95.0-100.0)
[2018-08-09 13:44] LABS: METHB 0.9 % (0.0-1.5)
[2018-08-09 13:45] LABS: O2(CT) 17.3 mL/dL (15.0-23.0)
--- NOTE | 2018-08-09 15:42 | ECHO REPORT ---
ORDER DATE: 08/09/2018 2D ECHOCARDIOGRAM: ECHOCARDIOGRAPHIC MEASUREMENTS: 1. Interventricular septum 1.0. 2. Left ventricular posterior wall 1.0. 3. Diastolic diameter 4.6. 4. Left atrium 3. 5. Aorta 3.7. SUMMARY: 1. Tricuspid valve was normal. Mitral valve was normal. 2. Aortic valve leaflets are trileaflet. Peak velocity across the aortic valve less than 2 m/sec. There is no aortic stenosis or regurgitation. There is trace mitral regurgitation. There is moderate tricuspid regurgitation. Peak velocity across the tricuspid valve was 3.2 m/sec. Pulmonary artery systolic pressure of 48 mmHg. Optison was used to assess left ventricular systolic function. Normal left ventricular cavity size. Estimated ejection fraction of 60-65%. 3. There is no pericardial effusion. 4. There is a reduced right ventricular systolic function. cc: MD Fransisco Medina MD
--- NOTE | 2018-08-09 20:55 | DISCHARGE SUMMARY ---
ADMISSION DATE: 08/07/2018 DISCHARGE DATE: 08/09/2018 DIAGNOSES: 1. Chronic obstructive pulmonary disease acute exacerbation. 2. Hypercapnic hypoxic respiratory failure. 3. Chest pain with abnormal EKG suggesting mid left anterior descending stenosis. 4. Long-term tobacco use. 5. History of alcohol abuse. 6. Chronic pancreatitis. 7. Positive antibody for hepatitis C with negative RNA quantification. 8. Systolic dysfunction of the left ventricle. DIAGNOSTICS: 1. Chest x-ray revealed COPD. 2. Echocardiogram revealed ejection fraction of 60% to 65% with reduced right ventricular systolic function. CONSULTS: Good Willett MD, Cardiology. HOSPITAL COURSE: Mr. Gil presented to the emergency room complaining of shortness of breath and chest pain. He ruled out by enzymes, although he did have EKG changes that Dr. Willett felt suggested mid LAD stenosis for which he is being transferred to [facility] for a left heart catheterization. He was found to be in hypercapnic hypoxic respiratory failure. He was initially placed on high-flow oxygen as he did not tolerate BiPAP for which he was treated with DuoNebs and steroids. Thankfully this did improve. He does have a history of alcohol abuse, being sober for almost a year, and about 2 weeks prior to this episode, he began to drink a pint every day or 2. During the hospitalization, he was monitored for alcohol withdrawal, given p.r.n. Ativan. We did of course monitor his breathing to assure that he was not over-sedated with Ativan. DISCHARGE MEDICATIONS: Plavix 75 mg p.o. daily, aspirin 81 mg p.o. daily, Solu-Medrol 60 mg p.o. q.8 hours, Cardizem 30 mg p.o. q.6 hours, Lovenox 60 mg p.o. q.12 hours, vancomycin per pharmacy, Cefepime 2 g q.12 hours, Ativan 1 mg q.4 hours p.r.n., hold for sedation. DISPOSITION: He is being discharged in transfer to [facility] under the care of the hospitalist for Cardiology evaluation. Dictated by RENÉ Machado for Tristan Grace MD cc: RENÉ Machado MD
--- NOTE | 2018-08-10 08:26 | DISCHARGE SUMMARY ---
ADMISSION DATE: 08/07/2018 DISCHARGE DATE: 08/09/2018 DISCHARGE DIAGNOSES: 1. Known coronary artery disease. 2. Chronic obstructive pulmonary disease with exacerbation. 3. Acute on chronic hypoxic and hypercapnic respiratory failure. 4. Chronic alcohol abuse, stable. 5. Hepatitis C. CONSULTATIONS: Cardiology. PROCEDURES: None. BRIEF HOSPITAL COURSE: The patient is a 57-year-old male who presented to the ER with chest pain, and certainly sounded quite worrisome for coronary disease. Cardiology was consulted and felt as though he needed a left heart catheterization. From a COPD standpoint, he was placed on breathing treatments, oxygen and steroids. DISPOSITION: Patient to be discharged home. Currently, he is in no alcohol withdrawal. His breathing is improved although he still is having some wheezing, and still having some chest pain. Therefore, Cardiology wants him transferred to [facility] for left heart cath. Further disposition per them. cc: Tristan Grace MD
== END 2018-08-09 11:24 | disposition short-term general hospital (02) | DRG 190 ==
LOC: P.ED 07:14 → P.EDIPHOLD 11:47 → SUATTDRO 11:47 → P.MEDSURG 08-08 06:17
PROVIDERS: ATTEND Family Medicine
CPT/HCPCS: 71010; 71020; 71045; 71046; 80048; 80053; 80061; 80076; 82550; 82805; 83735; 83880; 84484; 85025; 85610; 85730; 87040; 93005; 93306; 94640; 94761; 96365; 96372; 96375; 96376; 99285; A9270; C8929; C9113; J0696; J1650; J1940; J2060; J2270; J2405; J2930; J3370; J3411; J3475; J3480; J7030; J7040; J7050; Q9957; S0164

== ENCOUNTER 2018-08-24 21:26 | Inpatient (IN) ==
[2018-08-24 22:22] LABS: BASO# 0.03 X1000 (0.0-0.2); BASO% 0.2 % (0.0-0.8); EOS# 0.01 X1000 (0.0-0.7); EOS% 0.1 % (0.0-10.0); HEMOGLOBIN 14.2 g/dL (14.0-18.0); LYMPH# 0.71 X1000 (1.2-3.4); LYMPH% 5.5 % (20.5-51.1); MCH 33.3 PG (27-31); MCHC 31.6 g/dL (33-37); MCV 105.6 FL (81-99); MONO# 0.87 X1000 (0.11-0.59); MONO% 6.8 % (1.7-9.3); MPV 8.5 FL (7.4-10.4); NEUT% 87.4 % (42.2-75.2); PLT 153 X1000 (130-400); RBC 4.26 XMIL (4.7-6.1); RDW 15.2 % (11.5-14.5); WBC 12.82 X1000 (4.8-10.8)
[2018-08-24 22:29] LABS: ALB/GLOB RATIO 1.4; ALBUMIN 4.2 g/dL (3.5-5.0); CALCIUM 8.3 mg/dL (8.8-10.2); CREATININE 2.5 mg/dL (0.7-1.2); POTASSIUM 5.1 mmol/L (3.5-5.1); TOTAL BILIRUBIN 0.32 mg/dL (0.20-1.00); TOTAL PROTEIN 7.2 g/dL (6.3-8.3)
--- NOTE | 2018-08-24 22:29 | Diag Imaging Result Doc PS360 ---
EXAM: CT HEAD W/O CONTRAST HISTORY: AMS TECHNIQUE: CT head without contrast COMPARISON: 12/15/2015 FINDINGS: No parenchymal hemorrhage. No epidural or subdural hematoma. No subarachnoid hemorrhage. No mass identified on this noncontrasted exam. No hydrocephalus. No skull fracture. Rounded cyst or mucus in the right frontal sinus. IMPRESSION: No hemorrhage. Negative brain CT without contrast. This exam was performed using automated exposure control, adjustment of mA or kV according to patient size, and/or use of iterative reconstruction technique. Electronically signed by Scottie Olivares 08/24/2018 10:27 PM
--- NOTE | 2018-08-24 22:36 | Diag Imaging Result Doc PS360 ---
EXAM: CT THORAX/ABD/PELVIS W/CON HISTORY: trauma / iv only TECHNIQUE: 1. CT chest with intravenous contrast 2. CT abdomen and pelvis with intravenous contrast COMPARISON: 01/08/2018 FINDINGS: Chest: No pleural effusions. No thoracic aortic aneurysm or dissection. No cardiomegaly. No enlarged lymph nodes. There are small calcified right hilar lymph nodes. Mild to moderate emphysema. No pneumothoraces. Minimal increased markings in the medial segment of the right middle lobe and inferiorly in the left lower lobe. Old fracture to the posterior left 11th rib. Abdomen and pelvis: Normal enhancement of the liver and spleen. No hepatic or splenic laceration. There are small hepatic cysts. Normal pancreas, gallbladder, and right adrenal gland. Although the right adrenal gland was enlarged on the prior study it has increased in size and now measures 2.1 x 3.6 cm. Normal enhancement of the kidneys. No retroperitoneal hematoma. Moderate atherosclerosis. No bowel obstruction. No ascites. Urinary bladder is moderately distended and is normal. IMPRESSION: Chest: Possible small contusions in the right middle lobe and left lower lobe, but no other evidence of injury. Abdomen and pelvis: No injury. This exam was performed using automated exposure control, adjustment of mA or kV according to patient size, and/or use of iterative reconstruction technique. Electronically signed by Scottie Olivares 08/24/2018 10:34 PM
[2018-08-24 22:41] LABS: ALLEN TEST YES; BE -0.4 mmoll (-3.0-3.0); BLOOD TYPE ARTERIAL; HCO3-(ACT) 24.3 mmoll (20.0-26.0); METHB 1.4 % (0.0-1.5); O2(CT) 15.6 mL/dL (15.0-23.0); PO2(98.6) 58 mmHg (60-100); SAMPLE BLOOD; SAO2 93.4 % (95.0-100.0); THB 12.8 g/dL (11.5-17.4); pH(98.6) 7.21 (7.35-7.45)
[2018-08-24 22:46] LABS: O2HB 86.7 % (95.0-99.0)
[2018-08-24 22:47] LABS: MODALITY CANNULA; PCO2(98.6) 73 mmHg (35-45)
[2018-08-24] MEDS ORDERED: DUONEB (A & A) INH ONE (23:43)
--- NOTE | 2018-08-25 00:06 | PROVIDER DOCUMENTATION ---
This chart was entered by Refugio Ramos Scribe, acting as scribe for Tito Rosario MD. [id number] Abuse/Overdose - General Chief Complaint: Overdose Stated Complaint: overdose Time Seen by Provider: 08/24/18 21:42 Source: patient Unable to obtain history due to:: altered Allergies/Adverse Reactions: Allergies Allergy/AdvReac Type Severity Reaction Status Date / Time No Known Allergies Allergy Verified 08/24/18 21:42 Home Medications: Home Medication List Medication Instructions Recorded Confirmed Last Taken Type Albuterol Sulfate Inhaler 2 puff INH Q6H PRN PRN #1 inhaler 07/25/18 Unknown Rx [Ventolin Hfa] Clonazepam [Klonopin] 0.5 mg PO DAILY #10 tab.rapdis 07/25/18 Unknown Rx Gabapentin [Neurontin] 100 mg PO BID #30 cap 07/25/18 Unknown Rx Tiotropium [place] [Spiriva 4 gm INHALATION BID #1 mist.inhal 07/25/18 Unknown Rx Respimat] - History of Present Illness-Drug/Alcohol Nature of Presenting Problem: Pt is a 57 y/o M comes to the ED by EMS. Pt was found unresponsive in his car. EMS report after narcan pt was alert. On arrival pt says he has no clue what is going on and hurts all over. Pt says it is too painful to move off is right hip. He c/o of left hip pain and back pain. When asked did he take something, pt does not answer. He knows he is in the hospital some where. Review of Systems - Adult - REVIEW OF SYSTEMS - ADULT ROS:: limited per condition Constitutional: denies: chills, fever Musculoskeletal: reports: bone pain, back pain, joint pain. denies: neck pain Past History - Adult - PAST MEDICAL HISTORY-ADULT Review of Records: reports: Old Records Reviewed, Nursing Assessment Review, Medications Reviewed Major Childhood Illnesses: reports: denies history Cardiovascular: reports: denies history Respiratory: reports: asthma, COPD Gastrointestinal: reports: hepatitis (C) Obstetrical/Gynecological: reports: denies history Genitourinary: reports: denies history Musculoskeletal: reports: chronic pain Neurological: reports: denies history Psychiatric: reports: anxiety, depression, other (alcoholic) Endocrine/Immune: reports: denies history Other Conditions: reports: denies history - PRIOR SURGERIES/PROCEDURES Surgical/Procedure History: reports: orthopedic (extremity) - IMMUNIZATION STATUS Childhood Immunizations: See Nurse Assessment Flu Vaccine: See Nurse Assessment - FAMILY HISTORY Family History: reviewed, not pertinent - SOCIAL HISTORY Smoking: cigarettes, greater than 1 pack/day Substance Use: alcohol Living Situation: family Physical Exam-General - PHYSICAL EXAM-ADULT Initial Vital Signs Reviewed: Yes - CONSTITUTIONAL General Appearance: alert, no apparent distress - EYES Eyes: PERRL/EOMI, pink conjunctivae - HEAD, EARS, NOSE, MOUTH & THROAT HENMT: moist mucous membranes, normal ENT inspection, pharynx normal - NECK Neck: non-tender, full range of motion, supple, normal inspection - RESPIRATORY Respiratory: chest non-tender, lungs clear, normal breath sounds, no pleuratic chest pain, no respiratory distress, no accessory muscle use, increased rate - CARDIOVASCULAR Cardiovascular: normal peripheral pulses, regular rate, rhythm - GASTROINTESTINAL (ABDOMEN) Abdominal Exam: normal bowel sounds, non tender, soft - MUSCULOSKELETAL Back Exam: no CVA tenderness, no vertebral tenderness, other (large hematoma posterior left of spine) Extremity: non-tender, normal inspection, no pedal edema. negative: pelvis stable (left hip tenderness) - SKIN Integumentary: normal color, normal turgor, warm/dry - NEUROLOGIC Neurologic: grossly normal, no motor/sensory deficits - PSYCHIATRIC Psych/Mental Status: normal mood/affect, normal thought content, normal thought process, oriented x 3 Progress - PLAN OF CARE/RESULTS Progress/Plan/Lab Results: Vital Signs - 8 hr 08/24/18 21:30 Temperature 97.9 F Pulse Rate 97 H Respiratory Rate 26 H Blood Pressure 100/66 O2 Sat by Pulse Oximetry 87 L Laboratory Results - last 24 hr 08/24/18 08/24/18 08/24/18 21:43 21:43 21:43 WBC 12.82 H RBC 4.26 L Hgb 14.2 Hct 45.0 MCV 105.6 H MCH 33.3 H MCHC 31.6 L RDW Std Deviation 15.2 H Plt Count 153 MPV 8.5 Neut % (Auto) 87.4 H Lymph % (Auto) 5.5 L [place] % (Auto) 6.8 Eos % (Auto) 0.1 Baso % (Auto) 0.2 Neut # (Auto) 11.20 H Lymph # (Auto) 0.71 L [place] # (Auto) 0.87 H Eos # (Auto) 0.01 Baso # (Auto) 0.03 Specimen Type Sample Site pH pCO2 pO2 HCO3 Base Excess Oxyhemoglobin ABG O2 Sat (Calculated) ABG O2 Saturation ABG Carboxyhemoglobin ABG Methemoglobin Randall Test A-a O2 Difference Total Hemoglobin Lactate Liter Flow Blood Gas Modality FiO2 % Sodium 142 Potassium 5.1 Chloride 95 L Carbon Dioxide 28 Anion Gap 19 BUN 20 Creatinine 2.5 H Estimated GFR/1.73 m2 27 BUN/Creatinine Ratio 8 Glucose 160 H Calculated Osmolality 289 Calcium 8.3 L Total Bilirubin 0.32 AST 214 H ALT 82 H Alkaline Phosphatase 71 Troponin T Diw-R-Oajyfqkjslf Pept 1773 H Total Protein 7.2 Albumin 4.2 Globulin 3.0 Albumin/Globulin Ratio 1.4 08/24/18 08/24/18 21:43 22:32 WBC RBC Hgb Hct MCV MCH MCHC RDW Std Deviation Plt Count MPV Neut % (Auto) Lymph % (Auto) [place] % (Auto) Eos % (Auto) Baso % (Auto) Neut # (Auto) Lymph # (Auto) [place] # (Auto) Eos # (Auto) Baso # (Auto) Specimen Type ARTERIAL Sample Site R BRACHIAL pH 7.21 L pCO2 73 H* pO2 58 L HCO3 24.3 Base Excess -0.4 Oxyhemoglobin 86.7 L* ABG O2 Sat (Calculated) 15.6 ABG O2 Saturation 93.4 L ABG Carboxyhemoglobin 5.80 H* ABG Methemoglobin 1.4 Randall Test YES A-a O2 Difference 79.0 Total Hemoglobin 12.8 Lactate 2.50 H Liter Flow 3.0 Blood Gas Modality CANNULA FiO2 % 32.0 Sodium Potassium Chloride Carbon Dioxide Anion Gap BUN Creatinine Estimated GFR/1.73 m2 BUN/Creatinine Ratio Glucose Calculated Osmolality Calcium Total Bilirubin AST ALT Alkaline Phosphatase Troponin T 0.085 Cyo-V-Pdhfhzcwadu Pept Total Protein Albumin Globulin Albumin/Globulin Ratio Orders Category Date Time Status Nursing- Obtain EKG ONCE Care 08/24/18 21:[address] HEAD W/O CONTRAST [CT] Stat Exams 08/24/18 21:[address] THORAX/ABD/PELVIS W/CON [CT] Stat Exams 08/24/18 21:48 Completed ABG [RESP] Routine Lab 08/24/18 22:32 Completed CBC WITH ELECTRONIC DIFF [HEME] Stat Lab 08/24/18 21:43 Completed COMPREHENSIVE METABOLIC PANEL [CHEM] Stat Lab 08/24/18 21:43 Completed PRO B-NATRIURETIC PEPTIDE Stat Lab 08/24/18 21:43 Completed TROPONIN T Stat Lab 08/24/18 21:43 Completed URINALYSIS [URINALYSIS] Stat Lab 08/24/18 21:49 Uncollected URINE DRUG SCREEN Stat Lab 08/24/18 21:49 Uncollected Albuterol 2.5MG/Ipratrop 0.5MG [Duoneb (A & A)] Med 08/24/18 23:43 Discontinued 3 ml INH NOW ONE Aerosol Treatments Routine Oth 08/24/18 23:43 Completed Aerosol Treatments Stat Oth 08/24/18 23:43 Completed EKG [EKG] Stat Ther 08/24/18 21:49 Ordered Transfer/Admit Order [TRANSFER] Routine Transfer 08/24/18 23:51 Ordered Result Diagrams: 08/24/18 21:43 08/24/18 21:43 - EKG 1 Time of EKG reading by physician:: 00:40 EKG Read and Signed by:: Tito Rosario EKG Interpretation (*Must complete 3 of following elements*): Normal Rate: 83 Rhythm: NSR [place]: normal QRS: normal RI Interval: normal ST Wave: normal - CT/MRI 1 CT Study: Pelvis, Thorax Impression: Abnormal ( EXAM: CT THORAX/ABD/PELVIS W/CON HISTORY: trauma / iv only TECHNIQUE: 1. CT chest with intravenous contrast 2. CT abdomen and pelvis with intravenous contrast COMPARISON: 01/08/2018 FINDINGS: Chest: No pleural effusions. No thoracic aortic aneurysm or dissection. No cardiomegaly. No enlarged lymph nodes. There are small calcified right hilar lymph nodes. Mild to moderate emphysema. No pneumothoraces. Minimal increased markings in the medial segment of the right middle lobe and inferiorly in the left lower lobe. Old fracture to the posterior left 11th rib. Abdomen and pelvis: Normal enhancement of the liver and spleen. No hepatic or splenic laceration. There are small hepatic cysts. Normal pancreas, gallbladder, and right adrenal gland. Although the right adrenal gland was enlarged on the prior study it has increased in size and now measures 2.1 x 3.6 cm. Normal enhancement of the kidneys. No retroperitoneal hematoma. Moderate atherosclerosis. No bowel obstruction. No ascites. Urinary bladder is moderately distended and is normal. IMPRESSION: Chest: Possible small contusions in the right middle lobe and left lower lobe, but no other evidence of injury. Abdomen and pelvis: No injury. This exam was performed using automated exposure control, adjustment of mA or kV according to patient size, and/or use of iterative reconstruction technique. Electronically signed by Scottie Olivares 08/24/2018 10:34 PM 08/24/184 Interpreting Physician: Scottie Olivares MD Dictated Date/Time: 08/24/182227 cc: Tito Rosario MD;) 2 CT Study: Head Impression: Normal ( EXAM: CT HEAD W/O CONTRAST HISTORY: AMS TECHNIQUE: CT head without contrast COMPARISON: 12/15/2015 FINDINGS: No parenchymal hemorrhage. No epidural or subdural hematoma. No subarachnoid hemorrhage. No mass identified on this noncontrasted exam. No hydrocephalus. No skull fracture. Rounded cyst or mucus in the right frontal sinus. IMPRESSION: No hemorrhage. Negative brain CT without contrast. This exam was performed using automated exposure control, adjustment of mA or kV according to patient size, and/or use of iterative reconstruction technique. Electronically signed by Scottie Olivares 08/24/2018 10:27 PM 08/24/182226 Interpreting Physician: Scottie Olivares MD Dictated Date/Time: 08/24/182224 cc: Tito Rosario MD;) - CONSULTS/PCP/HOSPITALIST Notification #1 *Consult/PCP/Hospitalist*: Hospitalist- Dr Morales Time Discussed: 23:42 Reason/Comments: Admission Consult Disposition: Will see in ED (Accepts) Departure - Departure Date of Disposition Decision: 08/25/18 Time of Disposition Decision: 00:05 DIAGNOSIS: Hypoxia, COPD exacerbation, Hypoxemia, CHF (congestive heart failure), Renal insufficiency, Elevated troponin Disposition: ADMITTED INPATIENT 09 Certified Medical Emergency: Emergent Condition: Fair - Critical Care Note This patient required my direct & personal management of CC.: No Attestation - Physician/ MANDA Attestation Patient care was provided by Advanced Practice Provider:: No The physician spent face to face time with patient:: Yes Advanced Practice Provider documentation review:: Supervising physician onsite and consulted in the evaluation and care of this patient. The physician did have a face to face encounter with the patient. This chart was documented by the indicated scribe, (Refugio Ramos Scribe) and accurately reflects the services I performed and decisions made by me, Tito Rosario MD, as attested by the provider's signature.
[2018-08-25 01:32] LABS: URINE SOURCE CLEAN CATCH
[2018-08-25 01:40] LABS: BILIRUBIN URINE NEGATIVE (NEGATIVE); BLOOD URINE LARGE (NEGATIVE); COLOR YELLOW; GLUCOSE URINE NEGATIVE (NEGATIVE); KETONE URINE NEGATIVE (NEGATIVE); LEUKOCYTES URINE NEGATIVE (NEGATIVE); NITRITE URINE NEGATIVE (NEGATIVE); PH URINE 5.5; PROTEIN URINE 100 mg/dL (NEGATIVE); SP GRAVITY URINE 1.046; TURBIDITY URINE HAZY (CLEAR); UROBILINOGEN URINE NORMAL (NORMAL)
[2018-08-25 01:49] LABS: UR EPITHELIAL CELLS <10 /HPF (<10); URINE BACTERIA NEGATIVE /HPF; URINE WBC <10 /HPF (<10)
[2018-08-25 01:53] LABS: UR AMPHETAMINES QUAL NONE DETECTED (NONE DETECT); UR BARBITUATES QUAL NONE DETECTED (NONE DETECT); UR BENZODIAZEPIN QUAL PRESUMPTIVE POSITIVE (NONE DETECT); UR CANNABINOIDS QUAL PRESUMPTIVE POSITIVE (NONE DETECT); UR COCAINE QUAL NONE DETECTED (NONE DETECT); UR METHADONE QUAL NONE DETECTED (NONE DETECT); UR OPIATES QUAL PRESUMPTIVE POSITIVE (NONE DETECT); UR OXYCODONE QUAL NONE DETECTED (NONE DETECT); UR PCP QUAL NONE DETECTED (NONE DETECT)
--- NOTE | 2018-08-25 02:07 | HISTORY AND PHYSICAL ---
PRIMARY CARE PROVIDER: None. CHIEF COMPLAINT: Altered mental status, overdose. HISTORY OF PRESENT ILLNESS: Mr. Gil is an 57-year-old male well known to our service. He has a significant alcohol abuse history, tobacco abuse, and COPD, hepatitis C, chronic pancreatitis, depression, anxiety, last admitted to our service on 08/07/2018 for COPD exacerbation and hypercapnic respiratory failure. He started having chest pain, was followed by Cardiology and ended up being discharged home, unknown if he ever went to [facility] for his left heart catheterization. The patient could not tell me. Per ED report, the patient was found unresponsive in his car. He was given Narcan and was alert. The patient does not remember any of the events from today. He could not recall the last thing that had happened to him. However, he did know his name, date of , year, president, and current location. However, patient would fall asleep easily and would have to be woken up with tactile stimuli. He did follow commands and moves all extremities. Workup in the ED, head CT was negative. Chest, abdomen, and pelvis did not show anything acute. He was found to be hypoxemic and hypercapnic. On physical exam, he had inspiratory and expiratory wheezes. We will go ahead and treat him for COPD exacerbation and respiratory failure, and monitor him in the ICU overnight with a pulmonary consult. PAST MEDICAL HISTORY: 1. COPD. 2. Hepatitis C. 3. Chronic pancreatitis. 4. Depression/anxiety. 5. Alcohol abuse. 6. Coronary artery disease. 7. Systolic heart failure. 8. Acute on chronic hypoxemic hypercapnic respiratory failure. PAST SURGICAL HISTORY: TKA. FAMILY HISTORY: Mother with CVA. Father with CAD, both in their 60's. SOCIAL HISTORY: Pack per day smoker for over 40 years. He was unable to tell me how much alcohol he is still ingesting. ALLERGIES: No known drug allergies. HOME MEDICATIONS: Have not been verified. REVIEW OF SYSTEMS: Hard to obtain secondary to the patient's condition, except for those mentioned in HPI. PHYSICAL EXAMINATION: VITAL SIGNS: Temperature was 97.9 degrees, heart rate 83, respirations 24, last blood pressure was 100/66, O2 was 97% on a 6 L with a mask, initial he was 87% on room air. GENERAL: Mr. Gil is a chronically ill-appearing, 57-year-old male lying on the stretcher, somewhat obtunded. He does wake up to tactile stimuli. He does not answer all questions appropriately. He does follow commands, however, he falls back asleep easily and had to be awoken several times during the exam. HEENT: Atraumatic, normocephalic. PERRL. He does appear to have a bump or reddened place above his left eye. He states that it is sore to the touch. CARDIOVASCULAR: S1, S2 appreciated. No murmurs, gallops, rubs noted. RESPIRATORY: Lung sounds decreased throughout all lung bases, inspiratory, expiratory wheezes noted upon exam. GASTROINTESTINAL: Flat, soft, nontender, nondistended. Positive bowel sounds x4 quadrants. LOWER EXTREMITIES: Negative for edema. NEUROLOGIC: The patient did awaken to tactile stimuli, however, he did continue to fall asleep during the examination. However, he would awaken and answer questions appropriately and follow commands appropriately when awake. LABORATORY DATA: 1. Urinalysis and urine drug screen currently pending. EKG has been ordered, but was not on the chart for review. Head CT, no hemorrhage. Negative brain CT without contrast. 2. Chest, abdomen and pelvis CT showed possible small contusions in the right middle lobe and left lower lobe, but no other evidence of injury. Abdomen and pelvis, no injury. ASSESSMENT AND PLAN: 1. Acute on chronic hypercapnic hypoxic respiratory failure secondary to chronic obstructive pulmonary disease. We will continue the patient on supplemental O2. Recheck his ABGs in the morning. Consult Pulmonology. 2. Chronic obstructive pulmonary disease exacerbation. The patient had inspiratory and expiratory wheezes. We will continue with aggressive pulmonary toilet, bronchodilators, initiate him on high-dose steroids, and than scheduled steroids. 3. Questionable drug overdose. However, drug screen is currently pending. Per ED note, he did respond after Narcan was given. The patient has remained somewhat lethargic, does wake up to tactile stimuli and answers all questions appropriately and follows commands. Again, awaiting his urine drug screen. 4. Alcohol abuse. The patient, again, is somewhat lethargic. We will monitor him for any withdrawal or delirium tremens. 5. Depression and anxiety, aware. 6. Hepatitis C. 7. Coronary artery disease and systolic heart failure. 8. Acute kidney injury. We will continue with gentle hydration. 9. Transaminitis. We will continue to trend. 10. Small contusions to the right middle lobe and left lower lobe, as evident on CT scan. The patient does complain of being sore all over. Further recommendation to follow physician evaluation, laboratory, and diagnostic data. Dictated by RENÉ Tavera for Jeff Morales MD I have performed a face to face diagnostic evaluation. Labs/ xrays- reviewed. Exam- chest- wheezes, CV- regular A/P- COPD exacerbation, Alcohol abuse-,Overdose, ? Admit, duo nebs, solumedrol. Withdrawal precautions , supportive treatment. Andrew Jacobson cc: MD Sahnta Nicholas MD [facility]
[2018-08-25 02:40] LABS: URINE CASTS NONE SEEN; URINE CRYSTALS NONE SEEN; URINE SMALL ROUND CELLS NONE SEEN; URINE YEAST PRESENT
[2018-08-25] MEDS ORDERED: NS 1,000 ML IV SCH (03:20)
[2018-08-25] MEDS ORDERED: ZOFRAN IV PRN (03:20)
[2018-08-25] MEDS ORDERED: SALINE LOCK IV FLUID XX ONE (03:20)
[2018-08-25] MEDS ORDERED: DUONEB (A & A) INH PRN (03:20)
[2018-08-25 04:43] LABS: ALLEN TEST YES; BE 2.7 mmoll (-3.0-3.0); BLOOD TYPE ARTERIAL; HCO3-(ACT) 26.9 mmoll (20.0-26.0); METHB 0.5 % (0.0-1.5); O2HB 92.9 % (95.0-99.0); PO2(98.6) 78 mmHg (60-100); SAMPLE BLOOD; SAO2 97.9 % (95.0-100.0); THB 14.5 g/dL (11.5-17.4); pH(98.6) 7.32 (7.35-7.45)
[2018-08-25 04:45] LABS: MODALITY CANNULA
[2018-08-25 04:46] LABS: PCO2(98.6) 59 mmHg (35-45)
[2018-08-25] MEDS: DUONEB (A & A) INH SCH ×3 (04:55→11:20)
[2018-08-25 05:39] LABS: BASO# 0.01 X1000 (0.0-0.2); BASO% 0.1 % (0.0-0.8); HEMATOCRIT 41.3 % (42.0-52.0); HEMOGLOBIN 13.4 g/dL (14.0-18.0); IMM GRAN# 0.04 X1000 (0.0-0.04); IMM GRAN% 0.4 % (0.0-0.5); LYMPH% 8.6 % (20.5-51.1); MCH 32.6 PG (27-31); MCHC 32.4 g/dL (33-37); MCV 100.5 FL (81-99); MONO# 0.69 X1000 (0.11-0.59); MONO% 6.6 % (1.7-9.3); MPV 8.9 FL (7.4-10.4); NEUT# 8.79 X1000 (1.4-6.5); NEUT% 84.3 % (42.2-75.2); PLT 131 X1000 (130-400); RBC 4.11 XMIL (4.7-6.1); RDW 14.9 % (11.5-14.5); WBC 10.43 X1000 (4.8-10.8)
[2018-08-25] MEDS ORDERED: SOLU-MEDROL IV ONE (06:00)
[2018-08-25] MEDS: SOLU-MEDROL IV ONE ×2 (06:04→06:07)
[2018-08-25 06:19] LABS: ALB/GLOB RATIO 1.4; ALBUMIN 3.7 g/dL (3.5-5.0); CALCIUM 7.5 mg/dL (8.8-10.2); CREATININE 1.8 mg/dL (0.7-1.2); POTASSIUM 4.3 mmol/L (3.5-5.1); TOTAL BILIRUBIN 0.21 mg/dL (0.20-1.00); TOTAL PROTEIN 6.3 g/dL (6.3-8.3)
--- NOTE | 2018-08-25 06:49 | Diag Imaging Result Doc PS360 ---
CHEST-PORTABLE - 08/25/2018 INDICATION: dyspnea COMPARISON: 08/08/2018 FINDINGS: There is a new dense infiltrate in the left lung base. The right lung remains clear. Heart size is normal. IMPRESSION: New infiltrate in the left lung base compatible with pneumonia or aspiration. Electronically signed by Wilber Zarate 08/25/2018 6:46 AM
--- NOTE | 2018-08-25 08:05 | EKG Report ---
Test Performed on : 08/25/2018 00:40:09 AM Test Reason : sob Blood Pressure : / mmHG Vent. Rate : 083 BPM Atrial Rate : 083 BPM P-R Int : 122 ms QRS Dur : 116 ms QT Int : 376 ms P-R-T Axes : 081 087 056 degrees QTc Int : 441 ms Normal sinus rhythm. Normal ECG When compared with ECG of 09-AUG-2018 07:46, ST no longer depressed in Anterior leads T wave inversion less evident in Anterior leads Unconfirmed Result
[2018-08-25] MEDS ORDERED: SODIUM CHLORIDE 0.9% INJ SCH (08:30)
[2018-08-25] MEDS ORDERED: SOLU-MEDROL IV SCH ×2 (09:00→14:00)
[2018-08-25 10:54] VITALS: BP 134/66
--- NOTE | 2018-08-25 11:40 | DISCHARGE SUMMARY ---
ADMISSION DATE: 08/25/2018 DISCHARGE DATE: 08/25/2018 DISPOSITION: Home. CONSULTATIONS DURING THIS ADMISSION: Pulmonary Medicine was consulted. ADMISSION DIAGNOSES: 1. Acute on chronic hypercarbic and hypoxemic respiratory failure. 2. Chronic obstructive pulmonary disease. 3. Questionable drug overdose. 4. Alcohol abuse. 5. Hepatitis C. DISCHARGE DIAGNOSES: 1. Acute on chronic hypercarbic respiratory failure. 2. Mild chronic obstructive pulmonary disease exacerbation. 3. Left lower lobe infiltrate questionable for aspiration pneumonia. 4. Tobacco abuse. 5. Altered mental status on admission secondary to prescription drug abuse and some recreational drug abuse. 6. Urine toxicology positive for opioids, benzo's, and Cannabinoids. 7. Ongoing tobacco use. 8. Severe chronic obstructive pulmonary disease. 9. Chronic pain on chronic opioids and benzodiazepines. 10. Acute kidney injury improving. PRESENTING COMPLAINT: Altered mental status. HISTORY OF PRESENTING COMPLAINT: Mr. Gil is a 57-year-old male who is known to have significant history of alcohol and tobacco abuse, COPD, hepatitis C, who came to the emergency department because he was found unresponsive in his car. He was given Narcan and he became alert. In the ER, he was evaluated and was found to be slightly hypoxemic and hypercarbic, was admitted to the ICU for medical care. HOSPITAL COURSE: Mr. Gil this morning refers to be doing a lot better. He is saturating 96% on just 3 L. His vitals are stable. He is feeling a whole lot better, he is more awake and alert. He was asking for pain medication because of his chronic back. When you review the [employer] website, he was given Klonopin 0.5 15 pills and also Munday 7.5 14 pills just this month on the . Apparently, Mr. Gil is in chronic pain. However, he does not follow up with any chronic pain management, and I have advised him to do that because I was not going to write up any more narcotics for him. I have given him a prescription for tramadol with acetaminophen, and he has also be given a prescription for levofloxacin for the left lower lobe infiltrate which is suspicious for pneumonia/aspiration etiology. Mr. Gil has been advised about prescription drug abuse as well as recreational drug abuse. And he voiced understanding. He is today alert, and he is going to be discharged home in stable condition. He has been advised to get a primary care doctor, and also get a lung doctor. He has been referred to follow up with Dr. Malone. TIME SPENT: Time spent for discharge is 38 minutes. cc: MD KHOA Quinteros
[2018-08-25] MEDS: PROTONIX IV SCH ×2 (12:31→12:32)
--- NOTE | 2018-08-25 19:53 | CONSULTATION ---
DATE OF CONSULTATION: 08/25/2018 REQUESTING PROVIDER: RENÉ Tavera. REASON FOR CONSULTATION: Respiratory failure, overdose. HISTORY OF PRESENT ILLNESS: This is a 57-year-old male, with a medical history of chronic hypoxemic hypercapnic respiratory failure, COPD with ongoing tobacco abuse, chronic alcohol abuse, polysubstance abuse, hepatitis C, chronic pancreatitis, coronary artery disease, systolic heart failure, anxiety, and depression. He was last admitted to our facility from 08/08/2018 to 08/09/2018, with COPD exacerbation and acute on chronic hypoxemic hypercapnic respiratory failure. He presented to the ER last night via EMS after he was found unresponsive in his car. On the way to the ER, Narcan was applied and patient became alert. Initial workup in the ER revealed acute on chronic hypoxemic hypercapnic respiratory failure, chronic obstructive pulmonary disease exacerbation, acute renal insufficiency, elevated proBNP, and leukocytosis. Urine toxicology was positive for opioids, benzodiazepines, and cannabinoids. He has been admitted to the ICU for further evaluation and management. At the time of my examination, the patient is awake and oriented x3. He reports he does not know what exactly happened last night. He is complaining of severe low back pain 9/10, and asks me to give him some pain medicine. He states he takes oxycodone at home for pain. He appears anxious and restless. His vital signs are stable. He also states that he is thirsty and he wants to drink something. The urine in the urinal is brown and concentrated. He denies any fever or chest pain. PAST MEDICAL AND SURGICAL HISTORY: 1. Chronic hypoxemic hypercapnic respiratory failure. 2. COPD with ongoing tobacco abuse, on Ventolin and Spiriva at home. 3. Chronic alcohol abuse. 4. Polysubstance abuse. 5. Hepatitis C. 6. Chronic pancreatitis. 7. Coronary artery disease. 8. Systolic heart failure. 9. Anxiety and depression. 10. Total knee arthroplasty. SOCIAL HISTORY: The patient smokes a pack per day for 40 years. He has very significant alcohol abuse and drinks daily whiskey or beer, depending on what is available. He uses marijuana. FAMILY HISTORY: Positive for stroke and coronary artery disease. ALLERGIES: No known drug allergies. REVIEW OF SYSTEMS: Difficult to complete secondary to the patient's condition, except for those mentioned in HPI. PHYSICAL EXAMINATION: Vital Signs: Temperature 97.4 degrees, blood pressure 144/66, pulse 72, respiratory rate 20, oxygen saturation 97% on nasal cannula at 3 L. General: Chronically ill appearing, malnourished, anxious and restless. HEENT: Atraumatic. Trachea midline. Mucosa pink and slightly dry. Respiratory: Even and unlabored. Symmetrical excursion. Auscultation reveals diminished breathing sounds bibasilarly with prolonged expiratory phase. Cardiovascular: Regular rate and rhythm. Gastrointestinal: Bowel sounds normoactive in all 4 quadrants. Soft, nontender, nondistended. Extremities: No pedal edema. No cyanosis. No clubbing. Neurologic: Alert and oriented x3. Anxious and restless, but speech fluent and able to follow commands. LAB DATA: White blood cells 10.43, hemoglobin 30.4, hematocrit 41.3, platelet 131,000. Sodium 140, potassium 4.3, chloride 99, carbon dioxide 28, BUN 25, creatinine 1.8, glucose 95. AST 1574, ALT 538, alkaline phosphatase 64. ABGs: PH 7.32, pCO2 of 59, pO2 of 78, HC03 of 26.9, base excess 2.7, oxyhemoglobin 92.9. IMAGING DATA: Chest x-ray reveals a new dense infiltrate in the left lung base, compatible with pneumonia or aspiration. ASSESSMENT: This is a 57-year-old male, with a medical history of chronic hypoxemic hypercapnic respiratory failure, chronic obstructive pulmonary disease with ongoing tobacco abuse, chronic alcohol abuse, polysubstance abuse, hepatitis C, chronic pancreatitis, coronary artery disease, systolic heart failure, anxiety, and depression. He has been admitted to the intensive care unit with questionable drug overdose and altered mental status, acute on chronic hypoxemic hypercapnic respiratory failure, chronic obstructive pulmonary disease exacerbation, and acute kidney injury. 1. Acute on chronic hypoxemic hypercapnic respiratory failure. 2. Chronic obstructive pulmonary disease exacerbation. 3. Ongoing tobacco abuse. 4. Polysubstance abuse. 5. Encephalopathy on admission, clinically improving now. PLAN: 1. Continue supplemental oxygen. 2. Continue antibiotics, steroid, and bronchodilators. 3. Follow up with chest x-ray and arterial blood gases. 4. Highly recommend patient to quit smoking, drinking, and polysubstance abuse. 5. Continue gastrointestinal and deep venous thrombosis prophylaxis. 6. Further recommendations pending hospital course. Thank you for the courtesy of this consult. Dictated by RENÉ Arreola for Shanta Malone MD cc: RENÉ Arreola MD [facility]
[2018-08-26] MEDS ORDERED: LOVENOX SUBQ SCH (06:00)
== END 2018-08-25 13:12 | disposition home or self-care (01) | DRG 189 ==
LOC: ED 21:26 → ICU 08-25 00:08 → SUATTDRO 08-25 00:08
PROVIDERS: ATTEND Internal Medicine
CPT/HCPCS: 70450; 71010; 71045; 71260; 74177; 80053; 80101; 80301; 80307; 80324; 80345; 80346; 80353; 80358; 80361; 80365; 81001; 82805; 83880; 83992; 84484; 85025; 87070; 87077; 87186; 87205; 93005; 94640; 94761; 94799; 99285; A9270; G0431; G0434; G0479; G0480; J2930; J7030; Q9967